=== PATIENT | male | born 1935 | race Caucasian/White ===

== ENCOUNTER → 2016-10-06 | Outpatient (CLI) | payer OTHER ==
[~2016-10-06] MED LIST: ACET-1311 PO; AMOX200S11 PO; ATV/1 SL; BACL10TA PO; CARB1TAB PO; CARB25TA12 PO; CEFD1CAP14 PO; CEFT1INJ57 IM; CHOL1000 PO; CHOL100010 PO; DONE10TA12 PO; FINA5TAB PO; GABA-112 PO; LORA-741 PO; MEGE40SU PO; NF656 TD; OXYC10SO PO; POLY335019 PO; PRAM1TAB52 PO; TERA5CAP PO; TRAM-10 PO; [UNRECOGNIZED DRUG - CODE] IV; [UNRECOGNIZED DRUG - CODE] PO
--- NOTE | 2016-10-06 12:12 | DIAGNOSTIC IMAGING REPORT ---
LEFT FEMUR 5 VIEWS HISTORY: Left hip and leg pain. Prostate cancer/C61 COMPARISON: Pelvis and left hip 08/24/2016. FINDINGS: There is no fracture or dislocation. Soft tissues are unremarkable. No radiopaque foreign bodies. No suspicious lytic or blastic osseous lesions. The bones are osteopenic. IMPRESSION: Osteopenia. Otherwise, no abnormality within the left femur. Electronically signed by: Juan Pollard M.D. 10/06/2016 12:10 PM Dictated Date/Time: 10/06/2016 12:08 PM
== END | disposition home or self-care (01) ==
LOC: C.RADBC 11:23
PROVIDERS: ATTEND Internal Medicine
DX: C61 Malignant neoplasm of prostate (principal); M81.0 Age-related osteoporosis without current pathological fracture

== ENCOUNTER → 2016-10-12 | Outpatient (CLI) | payer OTHER ==
[2016-10-12 18:14] LABS: BASO % 0.2 %; BASO ABS # 0.01 K/uL (0-0.2); COMPLETE YES; EOS % 1.4 %; HEMATOCRIT 39.3 % (42-52); IG% 0.3 %; LYMPH % 20.8 %; MEAN CELL VOLUME 101.8 fL (80-100); MEAN CORPUSCULAR HEMOGLOBIN 33.9 pg (25-34); MEAN CORPUSCULAR HGB CONC 33.3 g/dl (32-36); MEAN PLATELET VOLUME 11.5 fL (7.4-10.4); MONO % 7.2 %; NEUT % 70.1 %; PLATELET COUNT 227 K/uL (130-400); RED BLOOD COUNT 3.86 M/uL (4.7-6.1); WHITE BLOOD COUNT 6.26 K/uL (4.8-10.8)
[2016-10-12 19:03] LABS: LYME DISEASE AB IGG POS (NEG); LYME DISEASE AB IGM NEG (NEG)
[2016-10-12 19:25] LABS: ALT/SGPT 7 U/L (12-78); AST/SGOT 16 U/L (15-37); BLOOD UREA NITROGEN 17 mg/dl (7-18); BUN/CREATININE RATIO 17.7 (10-20); CALCIUM 8.5 mg/dl (8.5-10.1); CARBON DIOXIDE 31 mmol/L (21-32); CHLORIDE 108 mmol/L (98-107); CREATININE 0.97 mg/dl (0.60-1.40); GLUCOSE 84 mg/dl (70-99); POTASSIUM 3.7 mmol/L (3.5-5.1); SODIUM 143 mmol/L (136-145)
[2016-10-12 19:36] LABS: ALB/GLOB RATIO 0.9 (0.9-2); ALKALINE PHOSPHATASE 81 U/L (45-117); THYROID STIMULATING HORMONE 0.829 uIu/ml (0.300-4.500)
--- NOTE | 2016-10-16 12:50 | CODING QUERY MEDICAL NECESSITY ---
SUPPORTING DIAGNOSIS NEEDED A supporting diagnosis is required for the test/procedure performed on this patient in order for us to be reimbursed by the patient's insurance. Please provide a supporting diagnosis for the following test/procedure listed below next to the test name along with your signature. *If there is no additional diagnosis for this patient that would support the following test/procedure please document that below next to the test/procedure. Test(s)/Procedure(s) that require a supporting diagnosis: * VITAMIN D 25-HYDROXY DIAGNOSIS: * VITAMIN B-12 LEVEL DIAGNOSIS: * DOS: 10/12/16 Provider Signature: Date: Thank you Jigna Vidales Health Information Management Once completed, please kindly fax back to [phone] For questions please call [phone]
[2016-10-17 11:22] LABS: 18KDIGG BAND NONREACTIVE (NONREACTIVE); 23KDIGG BAND NONREACTIVE (NONREACTIVE); 23KDIGM BAND REACTIVE (NONREACTIVE); 28KDIGG BAND NONREACTIVE (NONREACTIVE); 30KDIGG BAND NONREACTIVE (NONREACTIVE); 39KDIGG BAND NONREACTIVE (NONREACTIVE); 39KDIGM BAND NONREACTIVE (NONREACTIVE); 41KDIGG BAND REACTIVE (NONREACTIVE); 41KDIGM BAND REACTIVE (NONREACTIVE); 45KDIGG BAND NONREACTIVE (NONREACTIVE); 58KDIGG BAND NONREACTIVE (NONREACTIVE); 66KDIGG BAND NONREACTIVE (NONREACTIVE); 93KDIGG BAND NONREACTIVE (NONREACTIVE)
== END | disposition home or self-care (01) ==
LOC: C.LABBC 13:56
PROVIDERS: ATTEND Internal Medicine
DX: D47.2 Monoclonal gammopathy (principal); Z00.00 Encounter for general adult medical examination without abnormal findings; E53.8 Deficiency of other specified B group vitamins

== ENCOUNTER 2016-10-14 10:24 | Emergency (ER) | payer OTHER ==
[~2016-10-14] VITALS: Ht 177.8 cm; Wt 67.0 kg
[~2016-10-14 10:24] MED LIST changes: -ACET-1311 PO; -AMOX200S11 PO; -ATV/1 SL; -BACL10TA PO; -CARB25TA12 PO; -CEFD1CAP14 PO; -CEFT1INJ57 IM; -CHOL1000 PO; -GABA-112 PO; -LORA-741 PO; -MEGE40SU PO; -NF656 TD; -OXYC10SO PO; -POLY335019 PO; -PRAM1TAB52 PO; -TRAM-10 PO; -[UNRECOGNIZED DRUG - CODE] IV; -[UNRECOGNIZED DRUG - CODE] PO
[2016-10-14 10:29] VITALS: TEMP 37.1; Ht 177.8 cm; Wt 67.0 kg
[2016-10-14] MEDS ORDERED: TRAMADOL HCL 50 MG TAB PO STA (10:51)
[2016-10-14] MEDS ORDERED: TRAM-10 PO (10:54)
--- NOTE | 2016-10-14 11:01 | EMERGENCY ROOM VISIT NOTE ---
History Report prepared by Vania: Golden Navas Under the Supervision of: Dr. Christina Vigil M.D. First contact with patient: 10:35 Chief Complaint: LEG PAIN,LEG INJURY Stated Complaint: L LEG PAIN History of Present Illness The patient is an 81 year old male who presents to the Emergency Room with complaints of worsening upper left leg pain for the past few weeks. The patient states that the pain can get up to a 10/10 in severity. He states that the pain is in the front of his leg. The patient denies any recent falls. The patient's daughter additionally states that the patient has Parkinson's disease. The daughter states that the patient had an x-ray and EMG done, and they both showed nothing. The patient's daughter states that nothing makes it worse, and he is up at night due to the pain. The daughter states that when the patient had Aspercreme with lidocaine applied it somewhat felt better. Source of History: patient, family Onset: few weeks ago Position: leg (left) Symptom Intensity: 10/10 Timing: worsening Modifying Factors (Relieving): other (aspercreme with lidocaine) Review of Systems See HPI for pertinent positives & negatives. A total of 10 systems reviewed and were otherwise negative. Past Medical & Surgical Medical Problems: (1) Parkinson disease (2) PNA (pneumonia) Family History FHx: cancer FHx: heart disease Social History Smoking Status: Never Smoker Alcohol Use: none Drug Use: none Marital Status: Housing Status: other Current/Historical Medications Scheduled Hgrehaqko-Avicmpqj-Dihhgrfubh (Carbidopa/Levodopa/Entaca), 1 TAB PO QID Cholecalciferol (Vitamin D3), 2,000 TAB PO DAILY Donepezil Hydrochloride (Aricept), 10 MG PO DAILY Finasteride (Proscar), 5 MG PO DAILY Terazosin (Hytrin), 5 MG PO HS Scheduled PRN Baclofen (Lioresal), 10 MG PO TID PRN for Pain Tramadol (Ultram), 1-2 TAB PO TID PRN for Pain Allergies Coded Allergies: Scopolamine (Verified Allergy, Severe, confusion, 10/14/16) Physical Exam Vital Signs Date Time Temp Pulse Resp B/P Pulse Ox O2 Delivery O2 Flow Rate FiO2 10/14/16 12:08 59 16 122/56 95 Room Air 10/14/16 10:29 37.1 77 18 106/75 99 Room Air Physical Exam CONSTITUTIONAL: Parkinson's Disease. Moderate painful distress HEENT: No icterus, moist mucous membranes NECK: No meningismus, trachea is midline. CARDIOVASCULAR: Regular rate, normal perfusion RESPIRATORY: Unlabored breathing. Clear to auscultation. GASTROINTESTINAL: Non-tender GENITOURINARY: No flank tenderness MUSCULOSKELETAL: Full range of motion NEUROLOGIC: No acute gross focal deficits. PSYCHIATRIC: Normal affect SKIN: Normal exam of the left leg. Normal for ethnicity. Medical Decision & Procedures ER Provider Diagnostic Interpretation: US results as stated below per my review and radiologist interpretation. ULTRASOUND LEFT LOWER EXTREMITY VENOUS CLINICAL HISTORY: Left leg pain. COMPARISON STUDY: No priors. TECHNIQUE: Real-time, grayscale, and color Doppler sonography of the deep veins of the left lower extremity was performed from the inguinal crease to the calf. Compression and augmentation were utilized. FINDINGS: There is no sonographic evidence of deep venous thrombosis identified in the left lower extremity. The common femoral, superficial femoral, and popliteal veins are patent and normally compressible. The greater saphenous vein and the profunda femoris vein at the junction with the common femoral vein are clear. The visualized calf veins are patent. A small and minimally complex popliteal cyst measures 5.0 x 1.4 x 2.7 cm. IMPRESSION: 1. There is no sonographic evidence of deep venous thrombosis identified in the left lower extremity. 2. Bakers cyst. Electronically signed by: Tl Barba M.D. 10/14/2016 11:42 AM Dictated Date/Time: 10/14/2016 11:41 AM Medications Administered Medications (Trade) Dose Ordered Sig/Ron Route Start Time Stop Time Status Last Admin Dose Admin Tramadol HCl (Ultram Tab) 50 mg NOW STAT PO 10/14/16 10:51 10/14/16 10:52 DC 10/14/16 11:04 50 MG ED Course 1044: Past medical records reviewed. The patient was evaluated in room C3. A complete history and physical examination was performed. 1051: Tramadol HCl 50mg PO 1305: Upon reexamination the patient is resting comfortably. I discussed results and treatment plan with the patient. He verbalizes agreement and understanding. The patient is ready for discharge. Medical Decision Differential diagnoses include but are not limited to; nerve pain, DVT, lr's cyst, bela pathology. 81-year-old presents to the emergency department with his daughter for evaluation of persistent posterior left leg pain. Extremities are he had x- rays as well as an EMG study which were negative and that the oxycodone prescribed by Dr. Morgan makes him sick. DVT study today demonstrates a Lr cyst. Is given tramadol emergency room with significant improvement in his pain. Rx: Tramadol 1-2 tabs every 8 hours. Daughter understands to have patient follow up with the primary doctor Impression Primary Impression: Bakers cyst Scribe Attestation The scribe's documentation has been prepared under my direction and personally reviewed by me in its entirety. I confirm that the note above accurately reflects all work, treatment, procedures, and medical decision making performed by me. Departure Information Dispostion Home / Self-Care Prescriptions Tramadol (Ultram) 50 Mg Tab 1-2 TAB PO TID Y for Pain, #24 TAB Prov: Christina Vigil MD 10/14/16 Referrals Darrel Morgan M.D. (PCP) Forms HOME CARE DOCUMENTATION FORM, IMPORTANT VISIT INFORMATION Patient Instructions ED Cyst Adeline, My [facility]
[2016-10-14] MEDS ORDERED: CHOL1000 PO (11:08)
[2016-10-14] MEDS ORDERED: BACL10TA PO (11:08)
--- NOTE | 2016-10-14 11:43 | DIAGNOSTIC IMAGING REPORT ---
ULTRASOUND LEFT LOWER EXTREMITY VENOUS CLINICAL HISTORY: Left leg pain. COMPARISON STUDY: No priors. TECHNIQUE: Real-time, grayscale, and color Doppler sonography of the deep veins of the left lower extremity was performed from the inguinal crease to the calf. Compression and augmentation were utilized. FINDINGS: There is no sonographic evidence of deep venous thrombosis identified in the left lower extremity. The common femoral, superficial femoral, and popliteal veins are patent and normally compressible. The greater saphenous vein and the profunda femoris vein at the junction with the common femoral vein are clear. The visualized calf veins are patent. A small and minimally complex popliteal cyst measures 5.0 x 1.4 x 2.7 cm. IMPRESSION: 1. There is no sonographic evidence of deep venous thrombosis identified in the left lower extremity. 2. Bakers cyst. Electronically signed by: Tl Barba M.D. 10/14/2016 11:42 AM Dictated Date/Time: 10/14/2016 11:41 AM
[2016-10-14 13:15] VITALS: BP 136/59; PULSE 54; O2SAT 95
== END 2016-10-14 13:29 | disposition home or self-care (01) ==
LOC: C.EDB 10:25 → C.EDC 13:29
DX: M71.20 Synovial cyst of popliteal space [Baker], unspecified knee (principal); G20 Parkinson's disease; Z79.899 Other long term (current) drug therapy; Z88.8 Allergy status to other drugs, medicaments and biological substances; Z80.9 Family history of malignant neoplasm, unspecified; Z82.49 Family history of ischemic heart disease and other diseases of the circulatory system

== ENCOUNTER → 2016-10-25 | Outpatient (CLI) | payer OTHER ==
[~2016-10-25] MED LIST changes: +ACET-1311 PO; +AMOX200S11 PO; +ATV/1 SL; +BACL10TA PO; +CARB25TA12 PO; +CEFD1CAP14 PO; +CEFT1INJ57 IM; +CHOL1000 PO; -CHOL100010 PO; +GABA-112 PO; +LORA-741 PO; +MEGE40SU PO; +NF656 TD; +OXYC10SO PO; +POLY335019 PO; +PRAM1TAB52 PO; +TRAM-10 PO; +[UNRECOGNIZED DRUG - CODE] IV; +[UNRECOGNIZED DRUG - CODE] PO
[2016-10-25 09:51] LABS: URINE APPEARANCE CLEAR (CLEAR); URINE BILIRUBIN NEG (NEG); URINE COLOR DK YELLOW; URINE NITRITE NEG (NEG); URINE SPECIFIC GRAVITY 1.024 (1.000-1.030); UROBILINOGEN NEG (NEG); ZZUR CULT IF INDIC CLEAN CATCH NO
[2016-10-25 09:59] LABS: MANUAL MICROSCOPIC REQUIRED? NO; REVIEW REQ? YES
== END ==
LOC: C.LABUPHEI 08:40
PROVIDERS: ATTEND Family Medicine
DX: R39.15 Urgency of urination (principal)

== ENCOUNTER → 2016-11-08 | Outpatient (CLI) | payer OTHER ==
[~2016-11-08] MED LIST changes: +AMOX-602 PO; -AMOX200S11 PO
[2016-11-08 09:41] LABS: URINE APPEARANCE CLEAR (CLEAR); URINE BILIRUBIN NEG (NEG); URINE COLOR DK YELLOW; URINE NITRITE NEG (NEG); URINE SPECIFIC GRAVITY 1.015 (1.000-1.030); UROBILINOGEN NEG (NEG); ZZUR CULT IF INDIC CLEAN CATCH NO
[2016-11-08 09:47] LABS: MANUAL MICROSCOPIC REQUIRED? NO; REVIEW REQ? NO
--- NOTE | 2016-11-10 10:17 | CODING QUERY NO DIAGNOSIS ---
TREATMENT RENDERED WITHOUT A DIAGNOSIS : 1935 To promote full compliance with coding requirements relating to patient care, physician participation is requested in all cases of asbestos abatement technician uncertainty. Please assist us with providing a diagnosis/symptom for the test(s) below: A diagnosis/symptom was not documented on your Order. A valid diagnosis/symptom is required to bill all insurances. Please remember that we are unable to code a diagnosis of rule out, probable, possible, questionable, or suspected. Tests that require a diagnosis: DOS: 11/08/16 * [facility] CULT DIAGNOSIS: Provider Signature: Date: Thank you Ludy Riojas Health Information Management Once completed, please kindly fax back to [phone] For questions please call [phone]
== END ==
LOC: C.LABUPHEI 08:57
PROVIDERS: ATTEND Family Medicine
DX: N39.0 Urinary tract infection, site not specified (principal)

== ENCOUNTER → 2016-11-15 | Outpatient (CLI) | payer OTHER ==
[~2016-11-15] MED LIST changes: -AMOX-602 PO; +AMOX200S11 PO
[2016-11-15 10:35] LABS: MANUAL MICROSCOPIC REQUIRED? YES; URINE APPEARANCE CLOUDY (CLEAR); URINE COLOR AMBER; URINE NITRITE POS (NEG); URINE PH >= 9.0 (4.5-7.5); URINE SPECIFIC GRAVITY <= 1.005 (1.000-1.030); UROBILINOGEN NEG (NEG)
[2016-11-15 10:38] LABS: REVIEW REQ? NO; SULFASALICYLIC ACID POS (NEG); URINE BILIRUBIN NEG (NEG)
[2016-11-15 10:42] LABS: URINE BACTERIA 4+ (NEG); URINE WBC >30 /hpf (0-5)
== END ==
LOC: C.LABUPHEI 11-14 09:28
PROVIDERS: ATTEND Family Medicine
DX: R45.1 Restlessness and agitation (principal)

== ENCOUNTER 2016-11-18 21:58 | Inpatient (IN) | payer OTHER ==
[~2016-11-18] VITALS: Ht 175.3 cm; Wt 53.2 kg
[~2016-11-18 21:58] MED LIST changes: -ACET-1311 PO; -AMOX200S11 PO; -ATV/1 SL; -CARB25TA12 PO; -CEFD1CAP14 PO; -CEFT1INJ57 IM; -GABA-112 PO; -LORA-741 PO; -MEGE40SU PO; -NF656 TD; -OXYC10SO PO; -POLY335019 PO; -PRAM1TAB52 PO; -[UNRECOGNIZED DRUG - CODE] IV; -[UNRECOGNIZED DRUG - CODE] PO
[2016-11-18] MEDS ORDERED: SODIUM CHLORIDE 0.9% 1000ML 1,000 ML IV STA (23:17)
[2016-11-18 23:27] LABS: BASO % 0.2 %; BASO ABS # 0.02 K/uL (0-0.2); COMPLETE YES; HEMATOCRIT 51.7 % (42-52); IG% 0.6 %; LYMPH % 9.4 %; LYMPH ABS # 1.15 K/uL (1.2-3.4); MEAN CELL VOLUME 100.4 fL (80-100); MEAN CORPUSCULAR HEMOGLOBIN 33.8 pg (25-34); MEAN CORPUSCULAR HGB CONC 33.7 g/dl (32-36); MONO % 8.1 %; NEUT % 81.7 %; PLATELET COUNT 314 K/uL (130-400); RED BLOOD COUNT 5.15 M/uL (4.7-6.1); WHITE BLOOD COUNT 12.28 K/uL (4.8-10.8)
--- NOTE | 2016-11-18 23:32 | EMERGENCY ROOM VISIT NOTE ---
History Report prepared by Vania: Wale Lentz Under the Supervision of: Dr. Candis Buenrostro D.O. First contact with patient: 23:03 Chief Complaint: URINARY SYMPTOMS Stated Complaint: UTI Nursing Triage Summary: patient being treated for UTI . had dose of rocephin IM yesterday and staff at [facility] states patient is not improving and sent patient here for further workup. patient has dementia and is unable to answer questions at this time. History of Present Illness The patient is an 81 year old male who presents to the Emergency Room with complaints of persistent UTI symptoms for the past few weeks. Five weeks ago, the patient was temporarily moved to [facility]. Since being moved to the facility, the patient has had two or three UTIs and has been on and off antibiotics to treat the symptoms. Currently, the patient has a UTI and started Rocephin yesterday. However, the patient is known to pocket his medications. Per nursing staff at [facility], over the past few weeks the patient has been acting more agitated than usual. He also recently saw a Neurologist and he was doing grabbing motions in the air which the Neurologist thought was a sign of a UTI. Per nursing staff at [facility], the patient has been declining over the past few days. When he moved to [facility], he was communicating, eating and drinking, and able to move around in his wheelchair. However, over the past few days the patient has not taken anything by mouth and is not communicating or responding. Per patient's family, the patient has definitely been declining and they think he might not have been taking his medications for Parkinson's because he has been having increasing difficulty swallowing. [facility] because they thought he was dehydrated since he won't eat or drink and because he has been significantly declining. Per patient' s family, the only complaint the patient has had was a pain in his leg where he has Lr's cyst. The patient's HPI is limited due to AMS. Source of History: family, skilled nursing notes History Limited By: AMS Onset: past few weeks Position: other (global) Timing: other (persistent) Note: Other associated symptoms: UTI-like symptoms, acting more agitated, declining state, not communicating, decreased appetite and fluid-intake, increasing difficulty swallowing due to Parkinson's, leg pain Review of Systems The patient's ROS is limited due to AMS. Past Medical & Surgical Medical Problems: (1) ARF (acute renal failure) (2) Parkinson disease (3) PNA (pneumonia) Family History FHx: cancer FHx: heart disease Social History Smoking Status: Unknown if Ever Smoked Alcohol Use: none Drug Use: none Marital Status: Housing Status: other Current/Historical Medications Scheduled Cynooeteb-Ybcoecsy-Hjfawrsxoa (Carbidopa/Levodopa/Entaca), 1 TAB PO QID Cefdinir (Omnicef), 300 MG PO Q12H Ceftriaxone Sod (Rocephin), 1 GM IM DAILY Cholecalciferol (Vitamin D3), 2,000 TAB PO DAILY Cholecalciferol (Vitamin D3), 1,000 UNITS PO DAILY Donepezil Hydrochloride (Aricept), 10 MG PO DAILY Finasteride (Proscar), 5 MG PO DAILY Gabapentin (Neurontin), 100 MG PO BID Lidocaine (Lidoderm Patch 5%), 1 APPLN TD DAILY Megestrol Acetate (Megace Oral), 400 MG PO DAILY Pramipexole Dihydrochloride (Mirapex), 0.25 MG PO HS Terazosin (Hytrin), 5 MG PO HS Tramadol (Ultram), 50 MG PO Q8H Scheduled PRN Acetaminophen (Tylenol), 650 MG PO Q6H PRN for Pain or Fever Baclofen (Lioresal), 10 MG PO TID PRN for Pain Lorazepam (Ativan), 0.25 MG PO TID PRN for Anxiety Polyethylene Glycol 3350 (Miralax), 17 GM PO DAILY PRN for Constipation Allergies Coded Allergies: Scopolamine (Verified Allergy, Severe, confusion, 10/14/16) Physical Exam Vital Signs Date Time Temp Pulse Resp B/P Pulse Ox O2 Delivery O2 Flow Rate FiO2 11/19/16 02:03 79 11/19/16 01:40 76 20 103/64 95 Room Air 11/18/16 23:50 97 20 121/78 96 Room Air 11/18/16 22:43 93 11/18/16 22:05 36.5 96 18 116/75 96 Room Air Physical Exam General: Appears nearly catatonic. Will not follow commands. HEENT: Head - normocephalic and atraumatic Pupils are 2 mm and reactive to light. Extraocular eye muscles are intact, and sclera are anicteric. Nose - moist nasal mucosa without discharge. Mouth - dry buccal mucosa. Oropharynx is nonerythematous and there is no tonsillar exudate or edema noted. Neck: Supple; no JVD, nuchal rigidity, cervical lymphadenopathy. Heart: Regular rate and rhythm. There is a normal S1 and S2 with no murmurs, clicks, or gallops appreciated. Lungs: Clear to auscultation bilaterally with no wheezes, rales, or rhonchi. Abdomen: Soft, completely nontender, nondistended, with good bowel sounds. There are no palpable pulsatile masses or hepatosplenomegaly. There is no guarding, rigidity, or rebound noted. Extremities: No evidence of cyanosis, clubbing, or edema. There are easily palpable peripheral pulses. Skin: warm and dry with poor turgor and no rashes. Medical Decision & Procedures ER Provider Diagnostic Interpretation: Radiology results as stated below per my review and the radiologist's interpretation: CT Head: Limited due to artifact associated with deep brain stimulators. No clear acute intracranial process. Chest X-Ray: Elevated left hemidiaphragm, stimulator pack in place in left hemithorax. Laboratory Results 11/18/16 23:10 Red Blood Count 5.15, Mean Corpuscular Volume 100.4, Mean Corpuscular Hemoglobin 33.8, Mean Corpuscular Hemoglobin Concent 33.7, Mean Platelet Volume 12.0, Neutrophils (%) (Auto) 81.7, Lymphocytes (%) (Auto) 9.4, Monocytes (%) ( Auto) 8.1, Eosinophils (%) (Auto) 0.0, Basophils (%) (Auto) 0.2, Neutrophils # ( Auto) 10.04, Lymphocytes # (Auto) 1.15, Monocytes # (Auto) 1.00, Eosinophils # ( Auto) 0.00, Basophils # (Auto) 0.02 11/18/16 23:10 Test 11/18/16 23:10 11/18/16 23:39 11/18/16 23:40 White Blood Count 12.28 K/uL (4.8-10.8) Red Blood Count 5.15 M/uL (4.7-6.1) Hemoglobin 17.4 g/dL (14.0-18.0) Hematocrit 51.7 % (42-52) Mean Corpuscular Volume 100.4 fL (80-100) Mean Corpuscular Hemoglobin 33.8 pg (25-34) Mean Corpuscular Hemoglobin Concent 33.7 g/dl (32-36) Platelet Count 314 K/uL (130-400) Mean Platelet Volume 12.0 fL (7.4-10.4) Neutrophils (%) (Auto) 81.7 % Lymphocytes (%) (Auto) 9.4 % Monocytes (%) (Auto) 8.1 % Eosinophils (%) (Auto) 0.0 % Basophils (%) (Auto) 0.2 % Neutrophils # (Auto) 10.04 K/uL (1.4-6.5) Lymphocytes # (Auto) 1.15 K/uL (1.2-3.4) Monocytes # (Auto) 1.00 K/uL (0.11-0.59) Eosinophils # (Auto) 0.00 K/uL (0-0.5) Basophils # (Auto) 0.02 K/uL (0-0.2) RDW Standard Deviation 51.0 fL (36.4-46.3) RDW Coefficient of Variation 13.9 % (11.5-14.5) Immature Granulocyte % (Auto) 0.6 % Immature Granulocyte # (Auto) 0.07 K/uL (0.00-0.02) Anion Gap 9.0 mmol/L (3-11) Estimated GFR () 29.5 Estimated GFR (Non- 25.5 BUN/Creatinine Ratio 42.6 (10-20) Calcium Level 9.7 mg/dl (8.5-10.1) Total Bilirubin 0.5 mg/dl (0.2-1) Direct Bilirubin 0.1 mg/dl (0-0.2) Aspartate Amino Transf (AST/SGOT) 98 U/L (15-37) Alanine Aminotransferase (ALT/SGPT) 24 U/L (12-78) Alkaline Phosphatase 114 U/L (45-117) Total Creatine Kinase 717 U/L (39-308) Creatine Kinase MB 3.9 ng/ml (0.5-3.6) Troponin I 0.017 ng/ml (0-0.045) Total Protein 9.4 gm/dl (6.4-8.2) Albumin 3.0 gm/dl (3.4-5.0) Thyroid Stimulating Hormone (TSH) 1.620 uIu/ml (0.300-4.500) Creatine Kinase MB Ratio (0-3.0) Urine Color DK YELLOW Urine Appearance CLOUDY (CLEAR) Urine pH 6.0 (4.5-7.5) Urine Specific [place] 1.026 (1.000-1.030) Urine Protein 2+ (NEG) Urine Glucose (UA) NEG (NEG) Urine Ketones NEG (NEG) Urine Occult Blood 3+ (NEG) Urine Nitrite NEG (NEG) Urine Bilirubin NEG (NEG) Urine Urobilinogen NEG (NEG) Urine Leukocyte Esterase LARGE (NEG) Urine WBC (Auto) >30 /hpf (0-5) Urine RBC (Auto) >30 /hpf (0-4) Urine Hyaline Casts (Auto) 1-5 /lpf (0-5) Urine Epithelial Cells (Auto) >30 /lpf (0-5) Urine Bacteria (Auto) NEG (NEG) Urine Renal Epithelial Cells /lpf (0-5) Urine Pathogenic Casts /lpf (0) Urine Yeast (Auto) (NONE PRSENT) Laboratory results per my review. Medications Administered Medications (Trade) Dose Ordered Sig/Ron Route Start Time Stop Time Status Last Admin Dose Admin Sodium Chloride (Nss 1000ml) 1,000 ml @ 250 mls/hr Q4H STAT IV 11/18/16 23:17 11/19/16 02:55 DC 11/18/16 23:17 250 MLS/HR Procedure NSS IV ECG Indication: other Rate (beats per minute): 98 Rhythm: normal sinus Findings: other (with significant artifact secondary to brain stimulator) Change: ST segment depression laterally and t-wave inversion in AVL new when compared to EKG from September 2013. ED Course 2310: Past medical records reviewed. The patient was evaluated in room B4. A complete history and physical exam was performed. An IV lock was initiated and labs were drawn as above. 2317: Ordered NSS 1000 ml @ 250 mls/hr IV. The patient for CT scan of the brain as described above. 0130: At this time, I reevaluated the patient and he was still resting. 0154: At this time, I discussed the patient's case with Dr. Stafford - Hospitalist [facility] and he agreed to accept the patient for further evaluation. Medical Decision The patient is a 81 year old male who presents to the ED with UTI-like symptoms. Differential diagnosis includes dehydration, acute CVA, intracranial hemorrhage, Parkinson's exacerbation secondary to medication noncompliance. Labs reviewed by me: Sodium 151, chloride 116, BUN 98, creatinine 2.3, glucose 118, total CK 717, CKMB 3.9, Troponin 0.017, normal TSH, Normal H&H, white blood cells 12.2, urine was dark yellow in color with 3+ blood, >30 white cells and >30 red cells, large amount of leukocyte esterase. The patient has had increasing lethargy and altered mental status over the past couple of days. He's had decreased oral intake over the past couple weeks. The family explains that he places his medications in the right side of his mouth does not typically swollen and therefore has not been routinely taking his Parkinson's meds over the past couple of days. The patient has evidence of acute kidney injury with a creatinine of 2.3 up from 0.9. BUN/creatinine ratio is quite high. This is consistent with significant prerenal azotemia. Patient was receiving IV fluids here in the emergency department. His mental status did seem to start to improve according to the daughters. I discussed the case with the [facility] hospitalist and they will evaluate for further management. Consults Time Called: 014 Consulting Physician: Dr. Stafford - Hospitalist [facility] Returned Call: [phone] t this time, I discussed the patient's case with Dr. Stafford and he agreed to accept the patient for further evaluation. Impression Primary Impression: ARF (acute renal failure) Additional Impression: Altered mental status Scribe Attestation The scribe's documentation has been prepared under my direction and personally reviewed by me in its entirety. I confirm that the note above accurately reflects all work, treatment, procedures, and medical decision making performed by me. Departure Information Dispostion Being Evaluated By Hospitalist Referrals Donna Lopez (PCP) Problem Qualifiers
[2016-11-18 23:45] LABS: ALT/SGPT 24 U/L (12-78); BLOOD UREA NITROGEN 98 mg/dl (7-18); BUN/CREATININE RATIO 42.6 (10-20); CALCIUM 9.7 mg/dl (8.5-10.1); CARBON DIOXIDE 26 mmol/L (21-32); CHLORIDE 116 mmol/L (98-107); GLUCOSE 118 mg/dl (70-99); POTASSIUM 4.6 mmol/L (3.5-5.1); SODIUM 151 mmol/L (136-145)
[2016-11-18 23:56] LABS: ALKALINE PHOSPHATASE 114 U/L (45-117); AST/SGOT 98 U/L (15-37)
[2016-11-18 23:58] LABS: MANUAL MICROSCOPIC REQUIRED? NO; REVIEW REQ? YES; URINE APPEARANCE CLOUDY (CLEAR); URINE BILIRUBIN NEG (NEG); URINE COLOR DK YELLOW; URINE EPITHELIAL CELL AUTO >30 /lpf (0-5); URINE NITRITE NEG (NEG); URINE SPECIFIC GRAVITY 1.026 (1.000-1.030); UROBILINOGEN NEG (NEG)
[2016-11-19 00:07] LABS: CKMB/CK RATIO 0.5 (0-3.0)
[2016-11-19] MEDS ORDERED: NF656 TD (02:04)
[2016-11-19] MEDS ORDERED: MEGE40SU PO (02:08)
[2016-11-19] MEDS ORDERED: PRAM1TAB52 PO (02:10)
[2016-11-19] MEDS ORDERED: CEFT1INJ57 IM (02:13)
[2016-11-19] MEDS ORDERED: LORAZEPAM 2 MG/ML 1 ML VIAL IV PRN (02:15)
[2016-11-19] MEDS ORDERED: ONDANSETRON INJ 2 MG/ML 2 ML VIAL IV PRN (02:15)
[2016-11-19] MEDS ORDERED: BACLOFEN 10 MG TAB PO PRN (02:15)
[2016-11-19] MEDS ORDERED: CHOL1000 PO (02:16)
[2016-11-19] MEDS ORDERED: CEFD1CAP14 PO (02:18)
[2016-11-19] MEDS ORDERED: GABA-112 PO (02:20)
[2016-11-19] MEDS ORDERED: TRAM-10 PO (02:21)
[2016-11-19] MEDS ORDERED: ACET-1311 PO (02:24)
[2016-11-19] MEDS ORDERED: LORA-741 PO (02:27)
[2016-11-19] MEDS ORDERED: POLY335019 PO (02:29)
--- NOTE | 2016-11-19 02:47 | History and Physical ---
History & Physical Date & Time of Service: Nov 19, 2016 at 02:18 Chief Complaint: UTI Primary Care Physician: Tor Banda D.O. History of Present Illness Source: patient 81 y/o M w/Hx advanced Parkinson's disease, malnutrition. Pt's was recently admitted to the hospital and then a rehab facility following orthopedic surgery. He was exhibiting progressive weakness and lethargy at home and then placed in a nursing facility the past 2 weeks by his daughters for the purpose of receiving PT. In fact the pt's condition progressed while in the longterm. He began refusing any PO intake and then refused all medications over the past few days including his Parkinson's meds. He became catatonic PTO and was sent to the ER for evaluation. Initial labs reveal ARF which is likely due to dehydration. Clinically, the pt is rigid and poorly responsive on admission. He cannot contribute to the HPI. The pt's daughters have accompanied him to the ER and together with his have POA. I offered to place an NG tube in the pt to provide him with his Parkinson's medications as abrupt withdrawal can be life-threatening, however they declined stating that he has specified he does not want an NG or additional , interventional life-prolonging measures. The pt will therefore be treated with a focus on comfort however a final decision on his care status will be made in conjunction with his in the AM. 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 Smoking Status: Never Smoker Alcohol Use: none Drug Use: none Marital Status: Housing status: lives with family Immunizations History of Influenza Vaccine: Yes Influenza Vaccine Date: May 25, 2013 History of Tetanus Vaccine?: No History of Pneumococcal: Yes Pneumococcal Date: Aug 04, 2009 History of Hepatitis B Vaccine: No Multi-Drug Resistant Organisms History of MDRO: No Allergies Coded Allergies: Scopolamine (Verified Allergy, Severe, confusion, 10/14/16) Home Medications Scheduled Ydyabelwm-Ejyijmrc-Jyhsqrthvx (Carbidopa/Levodopa/Entaca), 1 TAB PO QID Cefdinir (Omnicef), 300 MG PO Q12H Ceftriaxone Sod (Rocephin), 1 GM IM DAILY Cholecalciferol (Vitamin D3), 2,000 TAB PO DAILY Cholecalciferol (Vitamin D3), 1,000 UNITS PO DAILY Donepezil Hydrochloride (Aricept), 10 MG PO DAILY Finasteride (Proscar), 5 MG PO DAILY Lidocaine (Lidoderm Patch 5%), 1 APPLN TD DAILY Megestrol Acetate (Megace Oral), 400 MG PO DAILY Pramipexole Dihydrochloride (Mirapex), 0.25 MG PO HS Terazosin (Hytrin), 5 MG PO HS Scheduled PRN Baclofen (Lioresal), 10 MG PO TID PRN for Pain Tramadol (Ultram), 1-2 TAB PO TID PRN for Pain Review of Systems cannot obtain - brought in due to unresponsive state Physical Exam Vital Signs Date Time Temp Pulse Resp B/P Pulse Ox O2 Delivery O2 Flow Rate FiO2 11/19/16 02:03 79 11/19/16 01:40 76 20 103/64 95 Room Air 11/18/16 23:50 97 20 121/78 96 Room Air 11/18/16 22:43 93 11/18/16 22:05 36.5 96 18 116/75 96 Room Air General Appearance: + pertinent finding (emaciated appearing elderly male - rigid and poorly responsive) Head: normocephalic Eyes: PERRL ENT: + pertinent finding (dry mucosal membranes) Neck: + pertinent finding (globally rigid) Respiratory/Chest: chest non-tender, lungs clear (poor effort - no audible crackles/wheezing), + pertinent finding (DBS in L chest wall - no induration) Cardiovascular: regular rate, rhythm, no gallop, no JVD, + systolic murmur Abdomen/GI: normal bowel sounds, non tender, soft Extremities/Musculoskelatal: normal inspection, no calf tenderness, normal capillary refill Neurologic/Psych: + pertinent finding (rigid - poorly responsive - occasional spontaneous movemet favors the extremities however he does move all 4) Skin: normal color, warm/dry, no rash Diagnostics Laboratory Results Results Past 24 Hours Test 11/18/16 23:10 11/18/16 23:39 11/18/16 23:40 Range/Units White Blood Count 12.28 4.8-10.8 K/uL Red Blood Count 5.15 4.7-6.1 M/uL Hemoglobin 17.4 14.0-18.0 g/dL Hematocrit 51.7 42-52 % Mean Corpuscular Volume 100.4 80-100 fL Mean Corpuscular Hemoglobin 33.8 25-34 pg Mean Corpuscular Hemoglobin Concent 33.7 32-36 g/dl Platelet Count 314 130-400 K/uL Mean Platelet Volume 12.0 7.4-10.4 fL Neutrophils (%) (Auto) 81.7 % Lymphocytes (%) (Auto) 9.4 % Monocytes (%) (Auto) 8.1 % Eosinophils (%) (Auto) 0.0 % Basophils (%) (Auto) 0.2 % Neutrophils # (Auto) 10.04 1.4-6.5 K/uL Lymphocytes # (Auto) 1.15 1.2-3.4 K/uL Monocytes # (Auto) 1.00 0.11-0.59 K/uL Eosinophils # (Auto) 0.00 0-0.5 K/uL Basophils # (Auto) 0.02 0-0.2 K/uL RDW Standard Deviation 51.0 36.4-46.3 fL RDW Coefficient of Variation 13.9 11.5-14.5 % Immature Granulocyte % (Auto) 0.6 % Immature Granulocyte # (Auto) 0.07 0.00-0.02 K/uL Sodium Level 151 136-145 mmol/L Potassium Level 4.6 3.5-5.1 mmol/L Chloride Level 116 98-107 mmol/L Carbon Dioxide Level 26 21-32 mmol/L Anion Gap 9.0 3-11 mmol/L Blood Urea Nitrogen 98 7-18 mg/dl Creatinine 2.30 0.60-1.40 mg/dl Estimated GFR () 29.5 Estimated GFR (Non- 25.5 BUN/Creatinine Ratio 42.6 10-20 Random Glucose 118 70-99 mg/dl Calcium Level 9.7 8.5-10.1 mg/dl Total Bilirubin 0.5 0.2-1 mg/dl Direct Bilirubin 0.1 0-0.2 mg/dl Aspartate Amino Transf (AST/SGOT) 98 15-37 U/L Alanine Aminotransferase (ALT/SGPT) 24 12-78 U/L Alkaline Phosphatase 114 45-117 U/L Total Creatine Kinase 717 39-308 U/L Creatine Kinase MB 3.9 0.5-3.6 ng/ml Creatine Kinase MB Ratio 0.5 0-3.0 Troponin I 0.017 0-0.045 ng/ml Total Protein 9.4 6.4-8.2 gm/dl Albumin 3.0 3.4-5.0 gm/dl Thyroid Stimulating Hormone (TSH) 1.620 0.300-4.500 uIu/ml Urine Color DK YELLOW Urine Appearance CLOUDY CLEAR Urine pH 6.0 4.5-7.5 Urine Specific [place] 1.026 1.000-1.030 Urine Protein 2+ NEG Urine Glucose (UA) NEG NEG Urine Ketones NEG NEG Urine Occult Blood 3+ NEG Urine Nitrite NEG NEG Urine Bilirubin NEG NEG Urine Urobilinogen NEG NEG Urine Leukocyte Esterase LARGE NEG Urine WBC (Auto) >30 0-5 /hpf Urine RBC (Auto) >30 0-4 /hpf Urine Hyaline Casts (Auto) 1-5 0-5 /lpf Urine Epithelial Cells (Auto) >30 0-5 /lpf Urine Bacteria (Auto) NEG NEG Urine Renal Epithelial Cells 0-5 /lpf Urine Pathogenic Casts 0 /lpf Urine Yeast (Auto) NONE PRSENT Microbiology Results 11/18/16 Urine Culture, Received Pending Diagnostic Radiology CT head: no acute findings Impression Assessment and Plan 81 y/o M w/Hx advanced Parkinson's disease, malnutrition. Pt's was recently admitted to the hospital and then a rehab facility following orthopedic surgery. He was exhibiting progressive weakness and lethargy at home and then placed in a nursing facility the past 2 weeks by his daughters for the purpose of receiving PT. In fact the pt's condition progressed while in the longterm. He began refusing any PO intake and then refused all medications over the past few days including his Parkinson's meds. He became catatonic PTO and was sent to the ER for evaluation. Initial labs reveal ARF which is likely due to dehydration. Clinically, the pt is rigid and poorly responsive on admission. He cannot contribute to the HPI. 1) Parkinson's - unresponsive and rigid - possibly a result of abrupt medication withdrawal - family have refused an NG for administration and are leaning toward comfort measures. Will provide Ativan and Morphine will be provided in addition to aggressive IVF. If he improves enough to take his meds we will restart his home dosing. 2) ARF/dehydration - IVF - no labs ordered until a decision is made AM regarding treatment goal 3) Malnutrition - pt previously had a PEG and has stated that he does not want any form of assisted feeding. DNR - prophylaxis not provided Total time for this admit including review of records, labs, meds, imaging - extensive discussion with daughters, ER attending - 33 min Level of Care Med/Surg Resuscitation Status DO NOT RESUSCITATE VTE Prophylaxis VTE Risk Assessment Done? Y/N: Yes Risk Level: Moderate Given or contraindicated: Treatment not indicated
[2016-11-19] MEDS ORDERED: LORAZEPAM INJ 0.5 MG in SYRINGE 0.75 ML IV PRN (03:00)
[2016-11-19 03:15] VITALS: BP 124/79; PULSE 95; TEMP 36.5; O2SAT 98; Ht 175.3 cm; Wt 53.2 kg
[2016-11-19] MEDS: D5W AND 1/2NSS 1,000 ML IV SCH ×4 (04:31→16:48)
--- NOTE | 2016-11-19 06:13 | DIAGNOSTIC IMAGING REPORT ---
CHEST ONE VIEW PORTABLE CLINICAL HISTORY: h/o aspiration dyspnea COMPARISON STUDY: 03/24/2016 FINDINGS: Lungs are clear. Diaphragms smooth. No evidence for cardiac enlargement. IMPRESSION: No acute process. Electronically signed by: Michael Delarosa M.D. 11/19/2016 6:12 AM Dictated Date/Time: 11/19/2016 6:11 AM
--- NOTE | 2016-11-19 06:16 | DIAGNOSTIC IMAGING REPORT ---
HEAD CT NONCONTRAST CT DOSE: 1382.10 mGy.cm HISTORY: Mental status change altered ms TECHNIQUE: Multiaxial CT images of the head were performed without the use of intravenous contrast. Comparison: 02/21/2016 Findings: The paranasal sinuses and mastoid air cells are clear. Brain stimulating electrodes unchanged in position from the prior exam. Age-related atrophy and chronic small vessel change. No acute intracranial abnormality. Review of systems midline. Impression: Chronic and postoperative change. No acute intracranial abnormality. Electronically signed by: Michael Delarosa M.D. 11/19/2016 6:14 AM Dictated Date/Time: 11/19/2016 6:13 AM
[2016-11-19 08:00] VITALS: BP 152/83; PULSE 66; TEMP 36.3; O2SAT 99
[2016-11-19 08:22] LABS: BASO % 0.2 %; BASO ABS # 0.02 K/uL (0-0.2); COMPLETE YES; HEMATOCRIT 43.2 % (42-52); IG% 0.6 %; LYMPH % 12.3 %; MEAN CELL VOLUME 101.2 fL (80-100); MEAN CORPUSCULAR HEMOGLOBIN 33.3 pg (25-34); MEAN CORPUSCULAR HGB CONC 32.9 g/dl (32-36); MEAN PLATELET VOLUME 11.6 fL (7.4-10.4); MONO % 8.4 %; NEUT % 78.5 %; PLATELET COUNT 275 K/uL (130-400); RED BLOOD COUNT 4.27 M/uL (4.7-6.1); WHITE BLOOD COUNT 11.35 K/uL (4.8-10.8)
--- NOTE | 2016-11-19 08:47 | Progress Note ---
Subjective Date of Service: Nov 19, 2016. Subjective Pt evaluation today including: conversation w/ patient, physical exam, chart review, lab review, review of studies, review of inpatient medication list Look very frail, lethargic, but turning head, open eyes, follow-up simple commands when talk to him more, looks so weak, Problem List Medical Problems: (1) Altered mental status Status: Acute (2) Altered mental status Status: Acute (3) Bakers cyst Status: Acute (4) Fever Status: Acute Review of Systems Constitutional: + problem reported (is limited because patient is nonverbal), No chills, No fever Objective Vital Signs Date Time Temp Pulse Resp B/P Pulse Ox O2 Delivery O2 Flow Rate FiO2 11/19/16 08:00 36.3 66 16 152/83 99 Room Air 11/19/16 03:15 Room Air 11/19/16 03:15 36.5 95 16 124/79 98 Room Air 11/19/16 02:43 80 20 103/61 95 11/19/16 02:03 79 11/19/16 01:40 76 20 103/64 95 Room Air 11/18/16 23:50 97 20 121/78 96 Room Air 11/18/16 22:43 93 11/18/16 22:05 36.5 96 18 116/75 96 Room Air Physical Exam General Appearance: + cachetic, + thin, + pertinent finding (frail, very week, lethargic) Eyes: normal inspection ENT: + pertinent finding (mucosa is dry) Neck: supple, no JVD Respiratory/Chest: + decreased breath sounds Cardiovascular: regular rate, rhythm, no edema Abdomen: normal bowel sounds, non tender, soft Extremities: non-tender Neurologic/Psychiatric: + abnormal final finisher II-XII (not able to test, however no obvious facial droop, mental status is none verble, very lethargic), + pertinent finding (follow-up commands to close eyes, stick out tongue,move right hands and bilateral toes but was not able to move left hand,) Skin: + pertinent finding (dry, bilateral lower heel is in protection) Laboratory Results Last 24 Hours Test 11/18/16 23:10 11/18/16 23:39 11/18/16 23:40 11/19/16 08:05 White Blood Count 12.28 K/uL 11.35 K/uL Red Blood Count 5.15 M/uL 4.27 M/uL Hemoglobin 17.4 g/dL 14.2 g/dL Hematocrit 51.7 % 43.2 % Mean Corpuscular Volume 100.4 fL 101.2 fL Mean Corpuscular Hemoglobin 33.8 pg 33.3 pg Mean Corpuscular Hemoglobin Concent 33.7 g/dl 32.9 g/dl Platelet Count 314 K/uL 275 K/uL Mean Platelet Volume 12.0 fL 11.6 fL Neutrophils (%) (Auto) 81.7 % 78.5 % Lymphocytes (%) (Auto) 9.4 % 12.3 % Monocytes (%) (Auto) 8.1 % 8.4 % Eosinophils (%) (Auto) 0.0 % 0.0 % Basophils (%) (Auto) 0.2 % 0.2 % Neutrophils # (Auto) 10.04 K/uL 8.91 K/uL Lymphocytes # (Auto) 1.15 K/uL 1.40 K/uL Monocytes # (Auto) 1.00 K/uL 0.95 K/uL Eosinophils # (Auto) 0.00 K/uL 0.00 K/uL Basophils # (Auto) 0.02 K/uL 0.02 K/uL RDW Standard Deviation 51.0 fL 52.3 fL RDW Coefficient of Variation 13.9 % 14.0 % Immature Granulocyte % (Auto) 0.6 % 0.6 % Immature Granulocyte # (Auto) 0.07 K/uL 0.07 K/uL Sodium Level 151 mmol/L Potassium Level 4.6 mmol/L Chloride Level 116 mmol/L Carbon Dioxide Level 26 mmol/L Anion Gap 9.0 mmol/L Blood Urea Nitrogen 98 mg/dl Creatinine 2.30 mg/dl Estimated GFR () 29.5 Estimated GFR (Non- 25.5 BUN/Creatinine Ratio 42.6 Random Glucose 118 mg/dl Calcium Level 9.7 mg/dl Total Bilirubin 0.5 mg/dl Direct Bilirubin 0.1 mg/dl Aspartate Amino Transf (AST/SGOT) 98 U/L Alanine Aminotransferase (ALT/SGPT) 24 U/L Alkaline Phosphatase 114 U/L Total Creatine Kinase 717 U/L Creatine Kinase MB 3.9 ng/ml Creatine Kinase MB Ratio 0.5 Troponin I 0.017 ng/ml Total Protein 9.4 gm/dl Albumin 3.0 gm/dl Thyroid Stimulating Hormone (TSH) 1.620 uIu/ml Urine Color DK YELLOW Urine Appearance CLOUDY Urine pH 6.0 Urine Specific [place] 1.026 Urine Protein 2+ Urine Glucose (UA) NEG Urine Ketones NEG Urine Occult Blood 3+ Urine Nitrite NEG Urine Bilirubin NEG Urine Urobilinogen NEG Urine Leukocyte Esterase LARGE Urine WBC (Auto) >30 /hpf Urine RBC (Auto) >30 /hpf Urine Hyaline Casts (Auto) 1-5 /lpf Urine Epithelial Cells (Auto) >30 /lpf Urine Bacteria (Auto) NEG Urine Renal Epithelial Cells /lpf Urine Pathogenic Casts /lpf Urine Yeast (Auto) Assessment and Plan 81 y/o M on 11/18/2016 because of ARF/dehydration/catatonic pt was progressive weakness and lethargy at home and then placed in a nursing facility the past 2 weeks by his daughters for the purpose of receiving PT. Condition continued getting worse in jail, was refusing any PO intake and then refused all medications over the past few days including his Parkinson' s meds. he became catatonic PTO and was sent to the ER for evaluation. Initial labs reveal ARF which is likely due to dehydration. he was rigid and poorly responsive on admission. Nonverbal, deconditioning, debility, likely secondary to multiple factors such as acute dehydration, plus Hx advanced Parkinson's disease, malnutrition, possible a little bit more responsive compared to the description upon admission , however remains critically ill and sick Parkinson's - unresponsive and rigid - possibly a result of abrupt medication withdrawal family have refused an NG for administration and are leaning toward comfort measures. Continue provide Ativan and Morphine will provided in addition to aggressive IVF. If he improves enough to take his meds we will restart his home dosing. Continue ARF/dehydration - IVF Malnutrition, pt previously had a PEG and has stated that he does not want any form of assisted feeding. I called to patient's daughter Kourtney, she wanted to continue for current care which is IV fluid only, no PEG tube, no other aggressive or surgical procedure / no NGT, Kourtney will coming in today with mom and sister and to discuss more with medical team, We'll talk to family more DNR - prophylaxis not provided Discussed with nurse Continued [facility] stay due to: multiple IV medications needed Discharge planning: uncertain
[2016-11-19] MEDS: LIDODERM (LIDOCAINE) PATCH 5% TD SCH ×2 (09:00→10:25)
[2016-11-19] MEDS: CARBIDOPA/LEVODOPA 25/100MG TAB PO SCH ×4 (09:00→21:19)
[2016-11-19] MEDS: ENTACAPONE 200 MG TAB PO SCH ×4 (09:00→21:19)
[2016-11-19] MEDS: MEGESTROL ACETATE 400 MG/10 ML UDP PO SCH (09:00)
[2016-11-19] MEDS: CHOLECALCIFEROL 1000 INTER.UNIT TAB PO SCH (09:00)
[2016-11-19] MEDS: FINASTERIDE 5 MG TAB PO SCH (09:00)
[2016-11-19] MEDS: DONEPEZIL HCL 10 MG TAB PO SCH (09:00)
[2016-11-19 09:29] LABS: BUN/CREATININE RATIO 45.1 (10-20); CALCIUM 9.1 mg/dl (8.5-10.1); CREATININE 2.1 mg/dl (0.60-1.40); MAGNESIUM 3.8 mg/dl (1.8-2.4); POTASSIUM 4.7 mmol/L (3.5-5.1)
[2016-11-19 15:33] VITALS: BP 118/70; PULSE 93; TEMP 36.4; O2SAT 98
[2016-11-19 22:55] VITALS: BP 107/70; PULSE 74; TEMP 36.5; O2SAT 99
[2016-11-20 06:27] LABS: BASO % 0.1 %; BASO ABS # 0.01 K/uL (0-0.2); COMPLETE YES; EOS % 0.2 %; HEMATOCRIT 48.3 % (42-52); IG% 0.7 %; LYMPH % 10.5 %; LYMPH ABS # 1.31 K/uL (1.2-3.4); MEAN CORPUSCULAR HEMOGLOBIN 34.8 pg (25-34); MEAN CORPUSCULAR HGB CONC 33.7 g/dl (32-36); MEAN PLATELET VOLUME 11.9 fL (7.4-10.4); MONO % 7.5 %; PLATELET COUNT 276 K/uL (130-400); RED BLOOD COUNT 4.69 M/uL (4.7-6.1); WHITE BLOOD COUNT 12.49 K/uL (4.8-10.8)
[2016-11-20 06:57] LABS: BUN/CREATININE RATIO 45.5 (10-20); CALCIUM 9.8 mg/dl (8.5-10.1); CREATININE 1.9 mg/dl (0.60-1.40); MAGNESIUM 3.6 mg/dl (1.8-2.4); POTASSIUM 4.3 mmol/L (3.5-5.1)
[2016-11-20 07:55] VITALS: BP 120/70; PULSE 75; TEMP 36; O2SAT 97
[2016-11-20] MEDS: ENTACAPONE 200 MG TAB PO SCH ×4 (09:24→21:00)
[2016-11-20] MEDS: DONEPEZIL HCL 10 MG TAB PO SCH (09:25)
[2016-11-20] MEDS: FINASTERIDE 5 MG TAB PO SCH (09:25)
[2016-11-20] MEDS: CHOLECALCIFEROL 1000 INTER.UNIT TAB PO SCH (09:25)
[2016-11-20] MEDS: MEGESTROL ACETATE 400 MG/10 ML UDP PO SCH (09:26)
[2016-11-20] MEDS: CARBIDOPA/LEVODOPA 25/100MG TAB PO SCH ×4 (09:28→21:00)
[2016-11-20] MEDS: LIDODERM (LIDOCAINE) PATCH 5% TD SCH (09:29)
--- NOTE | 2016-11-20 09:30 | Clinical Documentation Query ---
QUERY 1 OF 3 CLINICAL DOCUMENTATION QUERY Ms. BROOKS, In your clinical opinion is this patient being managed for: ( x ) severe protein-calorie malnutrition ( ) Other explanation of clinical findings (Please Explain) ( ) Unable to determine (Please Define) ( ) Need to Discuss ( ) Not Agree The medical record reflects the following clinical findings, treatment, and risk factors. Clinical Indicators: 81 yo male presenting with acute kidney failure. Pt's appearance is noted as emaciated. Body Straightener consult indicates pt with a 45 lb wt loss over 9 months (28%). Per report from [facility], pt has not taken anything by mouth over the past few days. Treatment: offer CBE TID with meals, monitor oral intake, wts, labs, IV fluids Risk Factors: Parkinson's disease progression Chronic Severe Malnutrition Criteria: (2 criteria needed) Energy intake: <75% of estimated energy requirement for > 1 month Wt loss: >5% in 1 month, > 7.5% in 3 months, >10% in 6 months, >20% in 1 year Body fat: severe loss of SQ fat from the orbits, triceps or fat overlying the ribs Muscle mass: severe muscle wasting at the temples, clavicles, shoulders, interosseous spaces, scapula, thigh, calf Fluid accumulation: severe localized or generalized edema of the extremities, vulva, scrotum-wt loss may be masked by edema QUERY 2 OF 3 In your clinical opinion is this patient being managed for: (x ) Metabolic encephalopathy ( ) Other explanation of clinical findings (Please Explain) ( ) Unable to determine (Please Define) ( ) Need to Discuss ( ) Not Agree The medical record reflects the following clinical findings, treatment, and risk factors. Clinical Indicators: Pt presented with Na 151, BUN 98, Cr 2.30 Treatment: IV fluids, serial PRP's Risk Factors: acute renal failure, dehydration, hypernatremia QUERY 3 OF 3 In your clinical opinion is this patient being managed for: ( x ) hypernatremia ( ) Other explanation of clinical findings (Please Explain) ( ) Unable to determine (Please Define) ( ) Need to Discuss ( ) Not Agree The medical record reflects the following clinical findings, treatment, and risk factors. Clinical Indicators: Inital Na 151 Treatment: IV fluids, serial PRP's Risk Factors: CRISS, dehydration Please clarify and document your clinical opinion in the progress notes and discharge summary. Terms such as "probable", "suspected", "likely", "questionable", "possible", or "still to be ruled out" are acceptable. IF IN AGREEMENT, YOU MUST DOCUMENT ABOVE DIAGNOSTIC STATEMENT IN DAILY PROGRESS NOTES AND DISCHARGE SUMMARY. This document is not part of the patient's record. Thank You, Yennifer Hameed RN [phone]
[2016-11-20 09:38] VITALS: O2SAT 97
--- NOTE | 2016-11-20 13:49 | Hospitalist Progress Note ---
Hospitalist Progress Note Date of Service Nov 20, 2016. (Shonda Dean PA-C) Subjective Pt evaluation today including: conversation w/ family, physical exam, chart review, lab review, review of inpatient medication list Patient unresponsive Additional Comments: Unable to obtain (Shonda Dean PA-C) Objective Vital Signs Date Time Temp Pulse Resp B/P Pulse Ox O2 Delivery O2 Flow Rate FiO2 11/20/16 09:38 97 Room Air 11/20/16 08:00 Room Air 11/20/16 07:55 36.0 75 24 120/70 97 Room Air 11/20/16 01:00 Room Air 11/19/16 22:55 36.5 74 16 107/70 99 Room Air 11/19/16 16:30 Room Air 11/19/16 15:33 36.4 93 18 118/70 98 Room Air (Shonda Dean PA-C) Physical Exam General Appearance: + cachetic, + pertinent finding (chronically ill in appearance) Neck: no JVD Respiratory/Chest: + pertinent finding (coarse breath sounds at the bases bilaterally) Cardiovascular: regular rate, rhythm Abdomen: non tender, soft, + pertinent finding (bowel sounds present, but hypoactive) Extremities: + pertinent finding (no erythema or edema noted in lower extremities bilaterally. Muscle wasting noted.) Neurologic/Psychiatric: + pertinent finding (unresponsive to verbal soon. Not following commands.) Skin: warm/dry (Shonda Dean PA-C) Laboratory Results 11/20/16 05:58 Red Blood Count 4.69, Mean Corpuscular Volume 103.0, Mean Corpuscular Hemoglobin 34.8, Mean Corpuscular Hemoglobin Concent 33.7, Mean Platelet Volume 11.9, Neutrophils (%) (Auto) 81.0, Lymphocytes (%) (Auto) 10.5, Monocytes (%) ( Auto) 7.5, Eosinophils (%) (Auto) 0.2, Basophils (%) (Auto) 0.1, Neutrophils # ( Auto) 10.12, Lymphocytes # (Auto) 1.31, Monocytes # (Auto) 0.94, Eosinophils # ( Auto) 0.02, Basophils # (Auto) 0.01 11/20/16 05:58 Test 11/20/16 05:58 White Blood Count 12.49 K/uL (4.8-10.8) Red Blood Count 4.69 M/uL (4.7-6.1) Hemoglobin 16.3 g/dL (14.0-18.0) Hematocrit 48.3 % (42-52) Mean Corpuscular Volume 103.0 fL (80-100) Mean Corpuscular Hemoglobin 34.8 pg (25-34) Mean Corpuscular Hemoglobin Concent 33.7 g/dl (32-36) Platelet Count 276 K/uL (130-400) Mean Platelet Volume 11.9 fL (7.4-10.4) Neutrophils (%) (Auto) 81.0 % Lymphocytes (%) (Auto) 10.5 % Monocytes (%) (Auto) 7.5 % Eosinophils (%) (Auto) 0.2 % Basophils (%) (Auto) 0.1 % Neutrophils # (Auto) 10.12 K/uL (1.4-6.5) Lymphocytes # (Auto) 1.31 K/uL (1.2-3.4) Monocytes # (Auto) 0.94 K/uL (0.11-0.59) Eosinophils # (Auto) 0.02 K/uL (0-0.5) Basophils # (Auto) 0.01 K/uL (0-0.2) RDW Standard Deviation 53.6 fL (36.4-46.3) RDW Coefficient of Variation 14.0 % (11.5-14.5) Immature Granulocyte % (Auto) 0.7 % Immature Granulocyte # (Auto) 0.09 K/uL (0.00-0.02) Anion Gap 8.0 mmol/L (3-11) Est Creatinine Clear Calc Drug Dose 22.6 ml/min Estimated GFR () 37.2 Estimated GFR (Non- 32.1 BUN/Creatinine Ratio 45.5 (10-20) Calcium Level 9.8 mg/dl (8.5-10.1) Magnesium Level 3.6 mg/dl (1.8-2.4) Last 24 Hours Test 11/20/16 05:58 White Blood Count 12.49 K/uL Red Blood Count 4.69 M/uL Hemoglobin 16.3 g/dL Hematocrit 48.3 % Mean Corpuscular Volume 103.0 fL Mean Corpuscular Hemoglobin 34.8 pg Mean Corpuscular Hemoglobin Concent 33.7 g/dl Platelet Count 276 K/uL Mean Platelet Volume 11.9 fL Neutrophils (%) (Auto) 81.0 % Lymphocytes (%) (Auto) 10.5 % Monocytes (%) (Auto) 7.5 % Eosinophils (%) (Auto) 0.2 % Basophils (%) (Auto) 0.1 % Neutrophils # (Auto) 10.12 K/uL Lymphocytes # (Auto) 1.31 K/uL Monocytes # (Auto) 0.94 K/uL Eosinophils # (Auto) 0.02 K/uL Basophils # (Auto) 0.01 K/uL RDW Standard Deviation 53.6 fL RDW Coefficient of Variation 14.0 % Immature Granulocyte % (Auto) 0.7 % Immature Granulocyte # (Auto) 0.09 K/uL Sodium Level 152 mmol/L Potassium Level 4.3 mmol/L Chloride Level 120 mmol/L Carbon Dioxide Level 24 mmol/L Anion Gap 8.0 mmol/L Blood Urea Nitrogen 86 mg/dl Creatinine 1.90 mg/dl Est Creatinine Clear Calc Drug Dose 22.6 ml/min Estimated GFR () 37.2 Estimated GFR (Non- 32.1 BUN/Creatinine Ratio 45.5 Random Glucose 122 mg/dl Calcium Level 9.8 mg/dl Magnesium Level 3.6 mg/dl (Shonda Dean, PAAnishC) Assessment and Plan 81 y/o M w/Hx advanced Parkinson's disease, protein calorie malnutrition. Pt's was recently admitted to the hospital and then a rehab facility following orthopedic surgery. He was exhibiting progressive weakness and lethargy at home and then placed in a nursing facility the past 2 weeks by his daughters for the purpose of receiving PT. In fact the pt's condition progressed while in the [facility]. He began refusing any PO intake and then refused all medications over the past few days including his Parkinson's meds. He became catatonic and was sent to the ER for evaluation. Initial labs reveal ARF which is likely due to dehydration. Metabolic encephalopathy likely multifactoral-secondary to dehydration, acute renal failure, Hypernatremia and UTI-growing Proteus -ceftriaxone 1 G IV daily first dose now -change IVF to 1/2 NS @ 80 cc/hr Parkinson's - unresponsive and rigid - possibly a result of abrupt medication withdrawal - family have refused an NG for administration and are leaning toward comfort measures. -Palliative care consult ARF/dehydration -improved with IVF Protein calorie Malnutrition - pt previously had a PEG and has stated that he does not want any form of assisted feeding. DVT prophylaxis -Teds, SCDs -We'll hold off on chemical means for patient comfort DNR Case discussed at length with the daughter, Kourtney. Would like to have a meeting with Palliative care tomorrow with family (Shonda Dean, PA-C) PA Physician Supervision Note: I interviewed and examined the patient. Discussed with Shonda Dean PAC and agree with findings and plan as documented in the note. Any exceptions or clarifications are listed here: None PT with significant baseline parkinsons, now locked in, minimally responsive, will need to have direction of care discussion vitals stable failed swallowing trial, as had previous Pt with hypernatremia due to poor po intake, treating possible aspiration pneumonia, will discuss direction of care with family Documented By: Demian Loyd (Demian Loyd M.D.)
[2016-11-20] MEDS ORDERED: CEFTRIAXONE SOD INJ 1 GM in DEXTROSE 5% 50ML 50 ML IV SCH (14:00)
[2016-11-20] MEDS: SODIUM CHLORIDE 0.45% 1000ML 1,000 ML IV SCH (14:23)
[2016-11-20 15:04] VITALS: BP 103/64; PULSE 82; TEMP 36.5; O2SAT 98
[2016-11-20] MEDS: AMPICILLIN/SULBACTAM SOD INJ 3,000 MG in SODIUM CHLORIDE 0.9% 100ML 100 ML IV SCH (16:26)
--- NOTE | 2016-11-20 16:32 | Palliative Care Progress Note ---
Assessment and Plan Spoke with the patient's daughter, Kourtney Souza, over phone. She will be coming to hospital later and will speak with her mother (patient's ) about a time for family meeting tomorrow. They will call me with the time. I went to patient' s room and introduced myself to patient and his . I left my card, they will call me with a time. Formal consult to follow.
[2016-11-20 23:05] VITALS: BP 134/71; PULSE 66; TEMP 36.7; O2SAT 98
[2016-11-21] MEDS: SODIUM CHLORIDE 0.45% 1000ML 1,000 ML IV SCH (02:50)
[2016-11-21] MEDS: AMPICILLIN/SULBACTAM SOD INJ 3,000 MG in SODIUM CHLORIDE 0.9% 100ML 100 ML IV SCH ×2 (03:46→16:14)
[2016-11-21 07:05] LABS: BUN/CREATININE RATIO 51.5 (10-20); CALCIUM 9.4 mg/dl (8.5-10.1); CREATININE 1.7 mg/dl (0.60-1.40); POTASSIUM 4.3 mmol/L (3.5-5.1)
[2016-11-21 07:11] VITALS: BP 116/70; PULSE 67; TEMP 36.7; O2SAT 97
[2016-11-21] MEDS: FINASTERIDE 5 MG TAB PO SCH (09:00)
[2016-11-21] MEDS: DONEPEZIL HCL 10 MG TAB PO SCH (09:00)
[2016-11-21] MEDS: MEGESTROL ACETATE 400 MG/10 ML UDP PO SCH (09:00)
[2016-11-21] MEDS: ENTACAPONE 200 MG TAB PO SCH ×4 (09:00→20:51)
[2016-11-21] MEDS: CHOLECALCIFEROL 1000 INTER.UNIT TAB PO SCH (09:00)
--- NOTE | 2016-11-21 10:06 | Palliative Care Consultation ---
Consultation Date of Consultation: Nov 21, 2016. Requesting Physician: Shonda Dean PA-C Attending Physician: Shonda Dean PA-C; Dr. Loyd Reason for Consultation: Goals of care History of Present Illness This 81 year old male patient presented to the ED three days ago with complaints of dehydration and catatonia per record. The patient has a history of Parkinson's disease and was recently in the [facility] fdc while his was recovering from orthopedic surgery. Per the family, the patient was not eating or drinking while at the [facility] and he was not taking his PO medications including Parkinson's meds. When he came home from the fdc he became progressively weak, lethargic and severely dehydrated, so the family brought him to the ED. His BUN and creatinine were 98 and 2.3, UA positive for UTI, and Na+ was 151. IVF given, antibiotics started. Patient's mental status initially improved per the family as he was more awake and able to communicate with some words. However, despite ongoing IVF and IV abx, the patient has declined: becoming nonverbal, unable to get OOB, and hardly taking anything in PO. He again failed his swallow evaluation as he has in the past, but the family chose to continue comfort feeding as the patient had a PEG tube a few years ago and was very adamant about never wanting a feeding tube again. Family chose to place an emphasis on comfort and wanted no heroic measures. Palliative care consulted to establish goals of care. I met with the patient, patient's daughters: Kourtney Souza and Sonal, and patient' s , Anna, in room 384-2. The patient is cachectic and nonverbal in [facility] bed, but eyes are open and tracking. He occasionally follows a command such as wiggling toes/moving extremities. He shows no signs of pain or discomfort at this time. The family and I had a lengthy discussion about patient's condition and goals of care. At baseline, before patient's stay at fdc, he was mostly in a wheelchair but could do transfers, feed himself and somewhat communicate by mouthing words and occasionally speaking. , Anna, is the main caregiver in the home. They all agreed that the patient has had a very significant decline and understand that recovery back to a functional state is not likely at this point. Despite our supportive treatment, the patient has not improved and has actually declined in the last couple days. The and daughters state that they are deciding on a facility: [facility] vs. [facility]; but are certain that they would like the patient to be on hospice when he does go. For now, they'd like to continue current treatment until they are able to talk to their brother in [place] and tell him to come here. Once decision is made for facility and discharge, they are okay with stopping IVF and abx. Past Medical/Surgical History Medical History: Parkinson's disease Pneumonia Dysphagia Surgical History: PEG tube Social History Smoking Status: Unknown if Ever Smoked History of Alcohol Use: No Drug Use: none Marital Status: Housing Status: lives with family Review of Systems Constitutional: + weakness, + weight loss ENT: + trouble swallowing (requiring honey thickened liquids ) Respiratory: No dyspnea on exertion, No shortness of breath Cardiac: No edema Abdomen: No nausea, No vomiting Male : + incontinence limited ROS provided by family, patient nonverbal Allergies Coded Allergies: Scopolamine (Verified Allergy, Severe, confusion, 10/14/16) Medications Current Inpatient Medications Medications (Trade) Dose Ordered Sig/Ron Route Start Time Stop Time Status Last Admin Dose Admin Baclofen (Lioresal Tab) 10 mg TID PRN PO 11/19/16 02:15 12/19/16 02:14 Cholecalciferol (Vitamin D Tab) 1,000 inter.unit DAILY PO 11/19/16 09:00 12/19/16 08:59 11/20/16 09:25 1,000 INTER.UNIT Donepezil HCl (Aricept Tab) 10 mg DAILY PO 11/19/16 09:00 12/19/16 08:59 11/20/16 09:25 10 MG Finasteride (Proscar Tab) 5 mg DAILY PO 11/19/16 09:00 12/19/16 08:59 11/20/16 09:25 5 MG Lidocaine (Lidoderm Patch 5%) 1 patch DAILY TD 11/19/16 09:00 12/19/16 08:59 11/20/16 09:29 1 PATCH Megestrol Acetate (Megace Susp) 400 mg DAILY PO 11/19/16 09:00 12/19/16 08:59 11/20/16 09:26 400 MG Terazosin HCl (Hytrin Cap) 5 mg HS PO 11/19/16 21:00 12/19/16 20:59 11/19/16 21:19 5 MG Carbidopa/Levodopa (Sinemet 25/ 100MG Tab) 2 tab QID PO 11/19/16 09:00 12/19/16 08:59 11/20/16 16:29 2 TAB Miscellaneous (Remove Lidoderm Patch) 1 ea DAILY@21 N/A 11/19/16 21:00 12/19/16 20:59 11/20/16 21:10 1 EA Morphine Sulfate (MoRPHine SULFATE INJ) 2 mg Q3H PRN IV 11/19/16 02:15 12/03/16 02:14 Ondansetron HCl (Zofran Inj) 4 mg Q6H PRN IV 11/19/16 02:15 12/19/16 02:14 Entacapone 200 mg 200 mg QID PO 11/19/16 09:00 12/19/16 08:59 11/20/16 16:29 200 MG Lorazepam 0.5 mg/ Syringe 1 ml @ 1 mls/min Q3H PRN IV 11/19/16 03:00 12/19/16 02:59 Sodium Chloride 1,000 ml @ 80 mls/hr [id number] IV 11/20/16 13:45 11/21/16 14:44 11/21/16 02:50 80 MLS/HR Ampicillin Sodium/ Sulbactam Sodium/ Sodium Chloride (Unasyn Inj/Nss 100ml) 108 ml @ 200 mls/hr Q12H IV 11/20/16 16:00 11/30/16 15:59 11/21/16 03:46 200 MLS/HR Physical Exam Date Time Temp Pulse Resp B/P Pulse Ox O2 Delivery O2 Flow Rate FiO2 11/21/16 07:11 36.7 67 14 116/70 97 Room Air 11/21/16 00:50 Room Air 11/20/16 23:05 36.7 66 18 134/71 98 Room Air 11/20/16 15:45 Room Air 11/20/16 15:04 36.5 82 16 103/64 98 Room Air 11/20/16 09:38 97 Room Air General Appearance: + cachetic, + thin, + pertinent finding (chronically ill appearing) Neck: no JVD Respiratory: no respiratory distress, no accessory muscle use, + pertinent finding (room air) Cardiovascular: regular rate, rhythm, no edema, + normal peripheral pulses Abdomen: normal bowel sounds, soft Neurologic/Psychiatric: alert, + pertinent finding (nonverbal) Laboratory Results Last 24 Hours Test 11/21/16 06:00 Sodium Level 155 mmol/L Potassium Level 4.3 mmol/L Chloride Level 125 mmol/L Carbon Dioxide Level 21 mmol/L Anion Gap 9.0 mmol/L Blood Urea Nitrogen 88 mg/dl Creatinine 1.70 mg/dl Est Creatinine Clear Calc Drug Dose 25.2 ml/min Estimated GFR () 42.6 Estimated GFR (Non- 36.7 BUN/Creatinine Ratio 51.5 Random Glucose 94 mg/dl Calcium Level 9.4 mg/dl Assessment & Plan Palliative Performance Scale: 20 % Problem list: Altered mental status/nonverbal 2/2 Parkinson's Ambulatory dysfunction Parkinson's disease Acute kidney injury 2/2 dehydration UTI- culture negative ?Aspiration pneumonia Goals of care (Z51.5) Palliative care plan: Discussed with patient's , two daughters, and Shonda Dean PA-C. -DNR/DNI per patient and family's wishes. -Goal is for comfort but also to see if any improvement in mental status and/or strength. Family understands this is not likely. -Continue current treatment with IVF and IV abx for the next 24 hours and reevaluate for any improvement. Either way, patient will be discharged to SNF wit hospice: [facility] vs. [facility]. -If patient able to eat/drink, offer comfort feedings despite risk of aspiration. Thank you kindly for this consult. I will follow as needed.
[2016-11-21] MEDS: CARBIDOPA/LEVODOPA 25/100MG TAB PO SCH ×4 (10:58→20:51)
[2016-11-21] MEDS: LIDODERM (LIDOCAINE) PATCH 5% TD SCH (11:09)
[2016-11-21] MEDS: DEXTROSE 5% 1000ML 1,000 ML IV SCH (11:12)
--- NOTE | 2016-11-21 12:35 | Hospitalist Progress Note ---
Hospitalist Progress Note Date of Service Nov 21, 2016. (Shonda Dean PA-C) Subjective Pt evaluation today including: conversation w/ family, physical exam, chart review, lab review, conversation w/ workday consultant, review of inpatient medication list Patient remains unresponsive Additional Comments: Unable to obtain (Shonda Dean PA-C) Objective Vital Signs Date Time Temp Pulse Resp B/P Pulse Ox O2 Delivery O2 Flow Rate FiO2 11/21/16 07:11 36.7 67 14 116/70 97 Room Air 11/21/16 00:50 Room Air 11/20/16 23:05 36.7 66 18 134/71 98 Room Air 11/20/16 15:45 Room Air 11/20/16 15:04 36.5 82 16 103/64 98 Room Air (Shonda Dean PA-C) Physical Exam General Appearance: no apparent distress ENT: + pertinent finding (oral mucosa dry) Neck: no JVD Respiratory/Chest: lungs clear Cardiovascular: regular rate, rhythm Abdomen: non tender, soft, + pertinent finding (bowel sounds hypoactive) Extremities: no pedal edema Neurologic/Psychiatric: + pertinent finding (unresponsive) Skin: warm/dry (Shonda Dean PA-C) Laboratory Results 11/21/16 06:00 Test 11/21/16 06:00 Anion Gap 9.0 mmol/L (3-11) Est Creatinine Clear Calc Drug Dose 25.2 ml/min Estimated GFR () 42.6 Estimated GFR (Non- 36.7 BUN/Creatinine Ratio 51.5 (10-20) Calcium Level 9.4 mg/dl (8.5-10.1) Last 24 Hours Test 11/21/16 06:00 Sodium Level 155 mmol/L Potassium Level 4.3 mmol/L Chloride Level 125 mmol/L Carbon Dioxide Level 21 mmol/L Anion Gap 9.0 mmol/L Blood Urea Nitrogen 88 mg/dl Creatinine 1.70 mg/dl Est Creatinine Clear Calc Drug Dose 25.2 ml/min Estimated GFR () 42.6 Estimated GFR (Non- 36.7 BUN/Creatinine Ratio 51.5 Random Glucose 94 mg/dl Calcium Level 9.4 mg/dl (Shonda Dean PA-C) Assessment and Plan 81 y/o M w/Hx advanced Parkinson's disease, protein calorie malnutrition. Pt's was recently admitted to the hospital and then a rehab facility following orthopedic surgery. He was exhibiting progressive weakness and lethargy at home and then placed in at [facility] for the past 2 weeks by his daughters for the purpose of receiving PT. In fact the pt's condition worsened while in the longterm. He began refusing any PO intake and then refused all medications over the past few days including his Parkinson's meds. He became catatonic and was sent to the ER for evaluation. Initial labs reveal ARF which is likely due to dehydration. Metabolic encephalopathy likely multifactoral-secondary to dehydration, acute renal failure, Hypernatremia and UTI-growing Proteus -unasyn 3 G iv q 6 hr (will cover aspiration PNA too). Day 2/7 Dysphagia-aspirating all consistencies -Pt may have pleasure feeds per family/pt wishes Parkinson's - unresponsive and rigid - possibly a result of abrupt medication withdrawal - family have refused an NG for administration and are leaning toward comfort measures. -pt not able to swallow meds at this point ARF/dehydration-Cr continues to improve 1.7 today Hypernatremia secondary to dehydration -Change IVF to D5W @ 80 cc/hr Severe Protein calorie Malnutrition -pt previously had a PEG and has stated that he does not want any form of assisted feeding. DVT prophylaxis -Teds, SCDs -We'll hold off on chemical means for patient comfort CODE STATUS -LEVEL V DO NO RESUSCITATE DISPO -plan is for pt to be treated for current UTI/possible aspiration PNA with a 7 day course of ABX then transition to hospice possibly at [facility]. Pt's family is looking a SNF's in the area -Possibly d/c tmrw on ABX (Shonda Dean, PA-C) PA Physician Supervision Note: I interviewed and examined the patient. Discussed with Shonda Dean PAC and agree with findings and plan as documented in the note. Any exceptions or clarifications are listed here: None PT with significant baseline parkinsons, now locked in, minimally responsive, Ms dean did have direction of care discussion with family, to treat current infection and move to snf for eventual comfort care vitals stable failed swallowing trial, as had previous Pt with hypernatremia due to poor po intake, treating possible aspiration pneumonia, uti poa, treat with levaquin and move to snf for comfort measures Documented By: Demian Loyd (Demian Loyd M.D.)
[2016-11-21 15:38] VITALS: BP 131/71; PULSE 68; TEMP 36.4; O2SAT 99
[2016-11-21 23:20] VITALS: BP 116/55; PULSE 58; TEMP 36.7; O2SAT 99
[2016-11-22] MEDS: DEXTROSE 5% 1000ML 1,000 ML IV SCH (00:21)
[2016-11-22] MEDS: AMPICILLIN/SULBACTAM SOD INJ 3,000 MG in SODIUM CHLORIDE 0.9% 100ML 100 ML IV SCH ×2 (03:48→16:55)
[2016-11-22 07:47] VITALS: BP 124/60; PULSE 62; TEMP 36.8; O2SAT 99
[2016-11-22 08:02] VITALS: O2SAT 99
[2016-11-22 08:27] LABS: BUN/CREATININE RATIO 47.7 (10-20); CALCIUM 8.8 mg/dl (8.5-10.1); CREATININE 1.3 mg/dl (0.60-1.40); MAGNESIUM 3.1 mg/dl (1.8-2.4); POTASSIUM 3.9 mmol/L (3.5-5.1)
[2016-11-22] MEDS: MoRPHine SULFATE 2 MG/ML CARP IV PRN (09:31)
[2016-11-22] MEDS: CARBIDOPA/LEVODOPA 25/100MG TAB PO SCH ×4 (09:36→20:14)
[2016-11-22] MEDS: LIDODERM (LIDOCAINE) PATCH 5% TD SCH (09:37)
[2016-11-22] MEDS: ENTACAPONE 200 MG TAB PO SCH ×4 (09:37→20:14)
[2016-11-22] MEDS: DONEPEZIL HCL 10 MG TAB PO SCH (09:37)
[2016-11-22] MEDS: FINASTERIDE 5 MG TAB PO SCH (09:51)
[2016-11-22] MEDS: CHOLECALCIFEROL 1000 INTER.UNIT TAB PO SCH (09:51)
[2016-11-22] MEDS: MEGESTROL ACETATE 400 MG/10 ML UDP PO SCH (09:51)
[2016-11-22] MEDS ORDERED: OXYC10SO PO (11:05)
[2016-11-22] MEDS ORDERED: [UNRECOGNIZED DRUG - CODE] PO (11:05)
[2016-11-22] MEDS ORDERED: CARB25TA12 PO (11:05)
[2016-11-22] MEDS ORDERED: [UNRECOGNIZED DRUG - CODE] IV (11:05)
--- NOTE | 2016-11-22 11:14 | Discharge Instructions ---
Discharge Instructions Date of Service Nov 22, 2016. Admission Reason for Admission: Arf, Parkinson Disease Discharge Discharge Diagnosis / Problem: acute renal failure, dehydration, UTI Discharge Goals Goal(s): Decrease discomfort Activity Recommendations Activity Limitations: per Instructions/Follow-up section Exercise/Sports Limitations: as tolerated . Instructions / Follow-Up Instructions / Follow-Up You had been treated in the hospital for acute kidney failure secondary to dehydration from poor oral intake. You also have been treated for a urinary tract infection The following additions have been made to your medication list: -Augmentin 800 mg two times daily for 4 days -Roxicodone solution 5 mL's every 4 hours as needed for pain -Ativan 1 mg every 3 hours as needed for anxiety or agitation Plan with the family has been decided to treat the current urinary tract infection and transition to hospice care The patient may have a diet as tolerated. It was recommended that he have honey thick liquids. The patient prefers regular liquids. Please call your family doctor for any new concerns Current Hospital Diet Patient's current hospital diet: Regular Diet Discharge Diet Recommended Diet: Regular Diet Diet Texture: Pureed (blended smooth) Procedures Procedures Performed: CT head Impression: Chronic and postoperative change. No acute intracranial abnormality. Pending Studies Studies pending at discharge: no Laboratory Results 11/22/16 07:46 Test 11/22/16 07:46 Anion Gap 6.0 mmol/L (3-11) Est Creatinine Clear Calc Drug Dose 33.0 ml/min Estimated GFR () 58.9 Estimated GFR (Non- 50.8 BUN/Creatinine Ratio 47.7 (10-20) Calcium Level 8.8 mg/dl (8.5-10.1) Magnesium Level 3.1 mg/dl (1.8-2.4) Medical Emergencies . Who to Call and When: Medical Emergencies: If at any time you feel your situation is an emergency, please call 911 immediately. . Non-Emergent Contact Non-Emergency issues call your: Primary Care Provider . . "Provider Documentation" section prepared by Shonda Dean. VTE Core Measure Inpt VTE Proph given/why not?: Treatment not indicated [place] Drug Monitoring Program Search Results: no issues identified
--- NOTE | 2016-11-22 11:26 | Discharge Summary ---
Discharge Summary Date of Service Nov 22, 2016. Discharge Summary Admission Date: Nov 19, 2016 at 02:17 Discharge Date: Nov 23, 2016 [facility] Principal Diagnosis: acute renal failure, dehydration, hypernatremia, UTI Problems/Secondary Diagnoses: Parkinson's disease Immunizations: Have You Had Influenza Vaccine: Yes Influenza Vaccine Date: May 25, 2013 History of Tetanus Vaccine?: No History of Pneumococcal: Yes Pneumococcal Date: Aug 04, 2009 History of Hepatitis B Vaccine: No Procedures: CT head Impression: Chronic and postoperative change. No acute intracranial abnormality. Consultations: Palliative care consult Medication Reconciliation New Medications: Amoxicillin/Clavulanate Potas (Augmentin Susp) 200 Mg/5 Ml Susp 5 ML PO 800 PRN for bid for 3 Days, ML Carbidopa/Levodopa (Sinemet 25MG/100MG) Tab 2 TAB PO QID for 30 Days, TAB Lorazepam (Ativan) 4 Mg/Ml Inj 1 MG PO Q3H for Anxiety/Agitation, #30 DOSE Lorazepam (Ativan) 1 Mg Tab 1 MG SL Q3H PRN for a for 15 Days, #120 TAB Oxycodone Hcl (Roxycodone Oral Soln) 5 Mg/5 Ml Yaneth 5 MG PO Q4H for Pain, #30 DOSE Continued Medications: Acetaminophen (Tylenol) 325 Mg Tab 650 MG PO Q6H PRN for Pain or Fever, TAB NEEDED FOR PAIN # 1-5 OR TEMP > 101f. NTE 3GM APAP/24HRS Baclofen (Lioresal) 10 Mg Tab 10 MG PO TID PRN for Pain, TAB Bxsdsyxpj-Ggzdhrrm-Anqniyfexv (Carbidopa/Levodopa/Entaca) 1 Tab Tab 1 TAB PO QID [id number] Polyethylene Glycol 3350 (Miralax) 1 Pow Pow 17 GM PO DAILY PRN for Constipation, #527 GM Pramipexole Dihydrochloride (Mirapex) 0.25 Mg Tab 0.25 MG PO HS, TAB Terazosin (Hytrin) 5 Mg Cap 5 MG PO HS Discontinued Medications: Cefdinir (Omnicef) 300 Mg Cap 300 MG PO Q12H for 5 Days, #10 CAP BEGIN 11/18/16 X5 DAYS Ceftriaxone Sod (Rocephin) 1 Gm Inj 1 GM IM DAILY for 5 Days, VIAL BEGIN 11/18/16 X 5 DAYS. MIX WITH 2.1ML 1% LIDOCAINE. Cholecalciferol (Vitamin D3) 1,000 Unit Tab 2000 TAB PO DAILY for 90 Days, TAB 3 Refills Cholecalciferol (Vitamin D3) 1,000 Unit Tab 1000 UNITS PO DAILY, TAB Donepezil Hydrochloride (Aricept) 10 Mg Tab 10 MG PO DAILY Finasteride (Proscar) 5 Mg Tab 5 MG PO DAILY Gabapentin (Neurontin) 100 Mg Cap 100 MG PO BID, CAP Lidocaine (Lidoderm Patch 5%) 1 Ea Tdsy 1 APPLN TD DAILY APPLY TO LEFT LATERAL THIGH DAILY IN AM. REMOVE AT HS. Lorazepam (Ativan) 0.5 Mg Tab 0.25 MG PO TID PRN for Anxiety, TAB Megestrol Acetate (Megace Oral) 40 Mg/Ml Greer 400 MG PO DAILY Tramadol (Ultram) 50 Mg Tab 50 MG PO Q8H, TAB Discharge Exam Patient able to nod his head that he has some pain. Points to his lower abdomen. Otherwise, cannot answer questions. Physical Exam: General Appearance: + mild distress (mild discomfort), + cachetic ENT: + pertinent finding (oral mucosa dry) Respiratory/Chest: lungs clear Cardiovascular: regular rate, rhythm Abdomen / GI: soft, + pertinent finding (mild tenderness to palpation in the left upper quadrant. Nondistended. Bowel sounds present.) Extremities: + pertinent finding (muscle wasting noted in the lower extremities bilaterally.) Neurologic/Psychiatric: + pertinent finding (more alert this morning. Does not follow commands.) Skin: warm/dry Hospital Course 81 y/o M w/Hx advanced Parkinson's disease, protein calorie malnutrition. Pt's was recently admitted to the hospital and then a rehab facility following orthopedic surgery. He was exhibiting progressive weakness and lethargy at home and then placed in at [facility] for the past 2 weeks by his daughters for the purpose of receiving PT. In fact the pt's condition worsened while in the fdc. He began refusing any PO intake and then refused all medications over the past few days including his Parkinson's meds. He became catatonic and was sent to the ER for evaluation. Initial labs reveal ARF which is likely due to dehydration. Metabolic encephalopathy likely multifactoral-secondary to dehydration, acute renal failure, Hypernatremia and UTI-growing Proteus -unasyn 3 G iv q 6 hr (will cover aspiration PNA too). Day 3/7 -Complete antibiotic course Dysphagia-aspirating all consistencies -Pt may have pleasure feeds per family/pt wishes -He does not like thickened liquids Parkinson's - unresponsive and rigid upon admission - possibly a result of abrupt medication withdrawal - family have refused an NG for administration and are leaning toward comfort measures. -Sinemet was continued as tolerated. The patient was able to take his medications with applesauce on the last day of admission ARF/creatinine improved during hospital course. At 1.3 the day of discharge -Would expect this to worsen once IV fluids are withdrawn Hypernatremia secondary to dehydration-mild improvement. Sodium 153 on day of discharge -Treated with IV fluids Severe Protein calorie Malnutrition -pt previously had a PEG and has stated that he does not want any form of assisted feeding. DVT prophylaxis -Teds, SCDs -We'll hold off on chemical means for patient comfort CODE STATUS -LEVEL V DO NO RESUSCITATE DISPO -plan is for pt to be treated for current UTI/possible aspiration PNA with a 7 day course of ABX then transition to hospice -DC to SNF with hospice Total Time Spent: Greater than 30 minutes This includes examination of the patient, discharge planning, medication reconciliation, and communication with other providers. Discharge Instructions Please refer to the electronic Patient Visit Report (Discharge Instructions) for additional information. Additional Copies To Darrel Morgan M.D.
--- NOTE | 2016-11-22 11:31 | Hospitalist Progress Note ---
Hospitalist Progress Note Date of Service Nov 22, 2016. Subjective Pt evaluation today including: conversation w/ patient, conversation w/ family , physical exam, lab review, conversation w/ fitness sales consultant, review of inpatient medication list Patient seems to be complaining of lower abdominal pain. Cannot tell me anything else. Additional Comments: Unable to obtain secondary to mental state Objective Vital Signs Date Time Temp Pulse Resp B/P Pulse Ox O2 Delivery O2 Flow Rate FiO2 11/22/16 08:02 99 Room Air 11/22/16 07:47 36.8 62 20 124/60 99 Room Air 11/21/16 23:20 36.7 58 16 116/55 99 Room Air 11/21/16 20:20 Room Air 11/21/16 15:38 36.4 68 18 131/71 99 Room Air Physical Exam General Appearance: + mild distress (in mild discomfort), + cachetic Respiratory/Chest: lungs clear Cardiovascular: regular rate, rhythm Abdomen: soft, + pertinent finding (tenderness to palpation appreciated in the left upper quadrant) Extremities: no pedal edema, + pertinent finding (muscle wasting noted) Neurologic/Psychiatric: + pertinent finding (eyes are open this morning. Does not follow commands.) Skin: warm/dry Laboratory Results 11/22/16 07:46 Test 11/22/16 07:46 Anion Gap 6.0 mmol/L (3-11) Est Creatinine Clear Calc Drug Dose 33.0 ml/min Estimated GFR () 58.9 Estimated GFR (Non- 50.8 BUN/Creatinine Ratio 47.7 (10-20) Calcium Level 8.8 mg/dl (8.5-10.1) Magnesium Level 3.1 mg/dl (1.8-2.4) Last 24 Hours Test 11/22/16 07:46 Sodium Level 153 mmol/L Potassium Level 3.9 mmol/L Chloride Level 125 mmol/L Carbon Dioxide Level 22 mmol/L Anion Gap 6.0 mmol/L Blood Urea Nitrogen 62 mg/dl Creatinine 1.30 mg/dl Est Creatinine Clear Calc Drug Dose 33.0 ml/min Estimated GFR () 58.9 Estimated GFR (Non- 50.8 BUN/Creatinine Ratio 47.7 Random Glucose 103 mg/dl Calcium Level 8.8 mg/dl Magnesium Level 3.1 mg/dl Assessment and Plan 81 y/o M w/Hx advanced Parkinson's disease, protein calorie malnutrition. Pt's was recently admitted to the hospital and then a rehab facility following orthopedic surgery. He was exhibiting progressive weakness and lethargy at home and then placed in at [facility] for the past 2 weeks by his daughters for the purpose of receiving PT. In fact the pt's condition worsened while in the alf. He began refusing any PO intake and then refused all medications over the past few days including his Parkinson's meds. He became catatonic and was sent to the ER for evaluation. Initial labs reveal ARF which is likely due to dehydration. Metabolic encephalopathy likely multifactoral-secondary to dehydration, acute renal failure, Hypernatremia and UTI-growing Proteus -More alert today Continue Unasyn day / Dysphagia-aspirating all consistencies -Pt may have pleasure feeds per family/pt wishes -He does not like thickened liquids Parkinson's - unresponsive and rigid upon admission - possibly a result of abrupt medication withdrawal - family have refused an NG for administration and are leaning toward comfort measures. -Continue Sinemet as tolerated ARF/creatinine improved during hospital course. At 1.3 today -We'll continue IV fluids while patient is in house Hypernatremia secondary to dehydration-mild improvement. Sodium 153 -continue IVF Severe Protein calorie Malnutrition -pt previously had a PEG and has stated that he does not want any form of assisted feeding. DVT prophylaxis -Teds, SCDs CODE STATUS -LEVEL V DO NO RESUSCITATE DISPO -Finish antibiotic course per patient's family's wishes -Ready for discharge. Awaiting placement -DC to SNF with hospice
[2016-11-22] MEDS ORDERED: ATV/1 SL (13:59)
[2016-11-22] MEDS ORDERED: AMOX200S11 PO (13:59)
[2016-11-22 16:00] VITALS: BP 130/66; PULSE 66; TEMP 36.5; O2SAT 100
[2016-11-22 20:16] VITALS: BP 110/61; PULSE 68
[2016-11-22 23:20] VITALS: BP 127/66; PULSE 68; TEMP 36.4; O2SAT 99
[2016-11-23] MEDS: AMPICILLIN/SULBACTAM SOD INJ 3,000 MG in SODIUM CHLORIDE 0.9% 100ML 100 ML IV SCH ×2 (04:19→17:18)
[2016-11-23 07:34] VITALS: BP 153/71; PULSE 72; TEMP 36.5; O2SAT 100
[2016-11-23 07:48] LABS: BUN/CREATININE RATIO 39.1 (10-20); CALCIUM 8.6 mg/dl (8.5-10.1); CREATININE 1.2 mg/dl (0.60-1.40); POTASSIUM 4.4 mmol/L (3.5-5.1)
[2016-11-23] MEDS: MoRPHine SULFATE 2 MG/ML CARP IV PRN (07:50)
[2016-11-23] MEDS: CARBIDOPA/LEVODOPA 25/100MG TAB PO SCH ×4 (10:04→21:43)
[2016-11-23] MEDS: LIDODERM (LIDOCAINE) PATCH 5% TD SCH (10:04)
[2016-11-23] MEDS: ENTACAPONE 200 MG TAB PO SCH ×4 (10:04→21:43)
[2016-11-23] MEDS: FINASTERIDE 5 MG TAB PO SCH (10:05)
[2016-11-23] MEDS: MEGESTROL ACETATE 400 MG/10 ML UDP PO SCH (10:05)
[2016-11-23] MEDS: CHOLECALCIFEROL 1000 INTER.UNIT TAB PO SCH (10:06)
[2016-11-23] MEDS: DONEPEZIL HCL 10 MG TAB PO SCH (10:06)
--- NOTE | 2016-11-23 12:56 | Hospitalist Progress Note ---
Hospitalist Progress Note Date of Service Nov 23, 2016. (Shonda Dean PA-C) Subjective Pt evaluation today including: conversation w/ family, physical exam, lab review, review of inpatient medication list Patient shakes his head no when asked if he is having any pain. Otherwise not communicating. Additional Comments: Unable to obtain secondary to mental status (Shonda Dean PA-C) Objective Vital Signs Date Time Temp Pulse Resp B/P Pulse Ox O2 Delivery O2 Flow Rate FiO2 11/23/16 08:10 Room Air 11/23/16 07:34 36.5 72 16 153/71 100 Room Air 11/22/16 23:20 36.4 68 16 127/66 99 Room Air 11/22/16 20:16 68 110/61 11/22/16 19:45 Room Air 11/22/16 16:00 36.5 66 17 130/66 100 Room Air Nasal Cannula (Shonda Dean PA-C) Physical Exam General Appearance: + pertinent finding (more alert today. Opening eyes. Shaking his head. Does not follow commands. No apparent distress noted.) ENT: + pertinent finding (oral mucosa dry) Neck: no JVD Respiratory/Chest: lungs clear Cardiovascular: regular rate, rhythm Abdomen: + pertinent finding (emaciated. Bowel sounds present. No tenderness appreciated.) Extremities: no pedal edema, + pertinent finding (muscle wasting noted.) Neurologic/Psychiatric: + pertinent finding (more alert today as noted. Able to shake his head no. Otherwise, does not follow commands.) Skin: warm/dry (Shonda Dean PA-C) Laboratory Results 11/23/16 06:54 Test 11/23/16 06:54 Anion Gap 8.0 mmol/L (3-11) Est Creatinine Clear Calc Drug Dose 35.7 ml/min Estimated GFR () 64.9 Estimated GFR (Non- 56.0 BUN/Creatinine Ratio 39.1 (10-20) Calcium Level 8.6 mg/dl (8.5-10.1) Last 24 Hours Test 11/23/16 06:54 Sodium Level 157 mmol/L Potassium Level 4.4 mmol/L Chloride Level 126 mmol/L Carbon Dioxide Level 23 mmol/L Anion Gap 8.0 mmol/L Blood Urea Nitrogen 47 mg/dl Creatinine 1.20 mg/dl Est Creatinine Clear Calc Drug Dose 35.7 ml/min Estimated GFR () 64.9 Estimated GFR (Non- 56.0 BUN/Creatinine Ratio 39.1 Random Glucose 83 mg/dl Calcium Level 8.6 mg/dl (Shonda Dean PA-C) Assessment and Plan 81 y/o M w/Hx advanced Parkinson's disease, protein calorie malnutrition. Pt's was recently admitted to the hospital and then a rehab facility following orthopedic surgery. He was exhibiting progressive weakness and lethargy at home and then placed at [facility] for the past 2 weeks by his daughters for the purpose of receiving PT. In fact the pt's condition worsened while in the senior living. He began refusing any PO intake and then refused all medications over the past few days including his Parkinson's meds. He became catatonic and was sent to the ER for evaluation. Initial labs reveal ARF which is likely due to dehydration. Metabolic encephalopathy likely multifactoral-secondary to dehydration, acute renal failure, Hypernatremia and UTI-growing Proteus -Mental state better today. Eyes open. Continue Unasyn day 01/07 -Plan is to DC to [facility] with Augmentin for a total antibiotic course of 7 days Dysphagia-aspirating all consistencies -Pt may have pleasure feeds per family/pt wishes -He does not like thickened liquids Parkinson's - unresponsive and rigid upon admission - possibly a result of abrupt medication withdrawal. Somewhat improved today. -Patient was able to take his Parkinson's medications yesterday. -Continue Sinemet as tolerated ARF/creatinine improved during hospital course. At 1.2 today -We'll continue IV fluids while patient is in house Hypernatremia secondary to dehydration-sodium worse today at 157 -continue IVF while in-house. Expect that this will deteriorate quickly when IV fluids are withdrawn Severe Protein calorie Malnutrition -pt previously had a PEG and has stated that he does not want any form of assisted feeding. DVT prophylaxis -Teds, SCDs CODE STATUS -LEVEL V DO NO RESUSCITATE DISPO -Finish antibiotic course per patient's family's wishes -Ready for discharge. Awaiting placement -DC to critical access hospital tomorrow (Shonda Dean PA-C) PA Physician Supervision Note: I interviewed and examined the patient. Discussed with Shonda Dean PAC and agree with findings and plan as documented in the note. Any exceptions or clarifications are listed here: None PT with significant baseline parkinsons, per Ms Urbans care discussion with family, complete treatment of infection and move to snf for hospice care very little change in day to day management vitals stable Pt is able to turn to voice, wispers nonsensical words, appears comfortable treating possible aspiration pneumonia, uti poa, with unasyn, consider transition to augmentin and move to snf for comfort measures Documented By: Demian Loyd (Demian Loyd M.D.)
[2016-11-23] MEDS: DEXTROSE 5% 1000ML 1,000 ML IV SCH (13:26)
[2016-11-23 15:09] VITALS: BP 133/89; PULSE 70; TEMP 36.9; O2SAT 92
--- NOTE | 2016-11-23 15:13 | Palliative Care Progress Note ---
Palliative Care Progress Note Date of Service Nov 23, 2016. Subjective Pt evaluation today including: conversation w/ patient, conversation w/ family (), physical exam, conversation w/ benefits sales consultant, review of inpatient medication list Pain: shook head "No" Voiding: kim catheter in place -More awake and alert today. Still nonverbal and nonambulatory -Have made several phone calls to family to try and meet and discuss POLST form. was to call me yesterday and again today when family was here, but no call. I went to patient's room three times today, no family at bedside. I did speak with , Anna, just now who said she just left hospital. I asked about continuing lab work and abx, but she stated her daughter "would be the one to ask." I called and left a message with Kourtney Souza. Kourtney called me back and said they still wanted the abx and IVF for the hypernatremia. Review of Systems unable to obtain Objective Vital Signs Date Time Temp Pulse Resp B/P Pulse Ox O2 Delivery O2 Flow Rate FiO2 11/23/16 08:10 Room Air 11/23/16 07:34 36.5 72 16 153/71 100 Room Air 11/22/16 23:20 36.4 68 16 127/66 99 Room Air 11/22/16 20:16 68 110/61 11/22/16 19:45 Room Air 11/22/16 16:00 36.5 66 17 130/66 100 Room Air Nasal Cannula Physical Exam General Appearance: no apparent distress, + thin, + pertinent finding ( chronically ill appearing) ENT: + pertinent finding (right eye not open) Neck: no JVD Respiratory/Chest: no respiratory distress, no accessory muscle use, + pertinent finding (room air) Cardiovascular: regular rate, rhythm, no edema, + normal peripheral pulses Abdomen: normal bowel sounds, non tender, soft Extremities: + pertinent finding (somewhat rigid) Neurologic/Psychiatric: alert, + pertinent finding (nonverbal) Laboratory Results Last 24 Hours Test 11/23/16 06:54 Sodium Level 157 mmol/L Potassium Level 4.4 mmol/L Chloride Level 126 mmol/L Carbon Dioxide Level 23 mmol/L Anion Gap 8.0 mmol/L Blood Urea Nitrogen 47 mg/dl Creatinine 1.20 mg/dl Est Creatinine Clear Calc Drug Dose 35.7 ml/min Estimated GFR () 64.9 Estimated GFR (Non- 56.0 BUN/Creatinine Ratio 39.1 Random Glucose 83 mg/dl Calcium Level 8.6 mg/dl Assessment and Plan Problem list: Altered mental status/nonverbal 2/2 Parkinson's Ambulatory dysfunction Parkinson's disease Acute kidney injury 2/2 dehydration UTI- culture negative ?Aspiration pneumonia Goals of care (Z51.5) Palliative care plan: -[facility] tomorrow with [facility] -Per Shonda Dean's note- switching to PO antibiotics on discharge -Left POLST form at bedside, Kourtney states they will fill it out. I'll check in tomorrow on this Thank you again for this consult. Please contact me with any further palliative care needs. Palliative Performance Scale: 20 % Discharge planning: nursing home facility (with hospice)
[2016-11-23 15:18] VITALS: BP 124/69; PULSE 67; TEMP 36.4; O2SAT 99
--- NOTE | 2016-11-23 15:44 | Progress Note ---
Subjective Date of Service: Nov 23, 2016. Problem List Medical Problems: (1) Altered mental status Status: Acute (2) Altered mental status Status: Acute (3) Bakers cyst Status: Acute (4) Fever Status: Acute Objective Vital Signs Date Time Temp Pulse Resp B/P Pulse Ox O2 Delivery O2 Flow Rate FiO2 11/23/16 15:18 36.4 67 19 124/69 99 Room Air 11/23/16 08:10 Room Air 11/23/16 07:34 36.5 72 16 153/71 100 Room Air 11/22/16 23:20 36.4 68 16 127/66 99 Room Air 11/22/16 20:16 68 110/61 11/22/16 19:45 Room Air 11/22/16 16:00 36.5 66 17 130/66 100 Room Air Nasal Cannula Laboratory Results Last 24 Hours Test 11/23/16 06:54 Sodium Level 157 mmol/L Potassium Level 4.4 mmol/L Chloride Level 126 mmol/L Carbon Dioxide Level 23 mmol/L Anion Gap 8.0 mmol/L Blood Urea Nitrogen 47 mg/dl Creatinine 1.20 mg/dl Est Creatinine Clear Calc Drug Dose 35.7 ml/min Estimated GFR () 64.9 Estimated GFR (Non- 56.0 BUN/Creatinine Ratio 39.1 Random Glucose 83 mg/dl Calcium Level 8.6 mg/dl Assessment and Plan PA Physician Supervision Note: I interviewed and examined the patient. Discussed with Shonda WESTFALL and agree with findings and plan as documented in the note. Any exceptions or clarifications are listed here: None PT with significant baseline parkinsons, now locked in, per Ms Conner care discussion with family, complete treatment of infection and move to snf for hospice care vitals are stable treating possible aspiration pneumonia, uti poa, with unasyn, consider transition to augmentin and move to snf for comfort measures, expect 11/24 Documented By: Demian Loyd Discharge planning: assisted facility (with hospice)
[2016-11-23 23:39] VITALS: BP 111/51; PULSE 78; TEMP 36.7; O2SAT 94
[2016-11-23 23:53] VITALS: BP 115/66; PULSE 65; TEMP 36.3; O2SAT 100
[2016-11-24] MEDS: DEXTROSE 5% 1000ML 1,000 ML IV SCH ×2 (03:06→15:58)
[2016-11-24] MEDS: AMPICILLIN/SULBACTAM SOD INJ 3,000 MG in SODIUM CHLORIDE 0.9% 100ML 100 ML IV SCH ×2 (04:06→16:27)
[2016-11-24 08:03] VITALS: BP 88/60; PULSE 73; TEMP 36.6; O2SAT 99
[2016-11-24 08:10] VITALS: BP 122/70
[2016-11-24 08:30] VITALS: O2SAT 99
[2016-11-24] MEDS: MEGESTROL ACETATE 400 MG/10 ML UDP PO SCH (09:00)
[2016-11-24] MEDS: FINASTERIDE 5 MG TAB PO SCH (09:00)
[2016-11-24] MEDS: ENTACAPONE 200 MG TAB PO SCH ×4 (09:00→20:38)
[2016-11-24] MEDS: CARBIDOPA/LEVODOPA 25/100MG TAB PO SCH ×4 (09:00→20:38)
[2016-11-24] MEDS: CHOLECALCIFEROL 1000 INTER.UNIT TAB PO SCH (09:00)
[2016-11-24] MEDS: DONEPEZIL HCL 10 MG TAB PO SCH (09:00)
[2016-11-24] MEDS: LIDODERM (LIDOCAINE) PATCH 5% TD SCH (09:11)
--- NOTE | 2016-11-24 11:36 | Hospitalist Progress Note ---
Hospitalist Progress Note Date of Service Nov 24, 2016. (Shonda Dean PA-C) Subjective Pt evaluation today including: conversation w/ patient, physical exam, chart review, review of inpatient medication list Patient is able to tell me that he does not have pain. Otherwise, history unobtainable. Additional Comments: Unable to perform secondary to mental state (Shonda Dean PA-C) Objective Vital Signs Date Time Temp Pulse Resp B/P Pulse Ox O2 Delivery O2 Flow Rate FiO2 11/24/16 08:30 99 Room Air 11/24/16 08:10 122/70 11/24/16 08:03 36.6 73 16 88/60 99 Room Air 11/24/16 07:35 Room Air 11/24/16 00:30 Room Air 11/23/16 23:53 36.3 65 16 115/66 100 Room Air 11/23/16 15:40 Room Air 11/23/16 15:18 36.4 67 19 124/69 99 Room Air (Shonda Dean PA-C) Physical Exam General Appearance: + mild distress ENT: + pertinent finding (oral mucosa remains dry) Respiratory/Chest: lungs clear Cardiovascular: regular rate, rhythm Abdomen: non tender, + pertinent finding (bowel sounds present, but hypoactive. emaciated) Extremities: + pertinent finding (muscle wasting noted. Contracture noted in all extremities) Neurologic/Psychiatric: alert (eyes are open this morning. Able to shake his head no when asked if he has pain. Otherwise, does not follow commands.) Skin: warm/dry (Shonda Dean PA-C) Assessment and Plan 81 y/o M w/Hx advanced Parkinson's disease, protein calorie malnutrition. Pt's was recently admitted to the hospital and then a rehab facility following orthopedic surgery. He was exhibiting progressive weakness and lethargy at home and then placed at [facility] for the past 2 weeks by his daughters for the purpose of receiving PT. In fact the pt's condition worsened while in the [facility]dc. He began refusing any PO intake and then refused all medications over the past few days including his Parkinson's meds. He became catatonic and was sent to the ER for evaluation. Initial labs reveal ARF which is likely due to dehydration. Metabolic encephalopathy likely multifactoral-dehydration, acute renal failure, Hypernatremia and UTI-growing Proteus -Continue Unasyn day 6/ -Pt can finish Unasyn here tomorrow-->will not need any further ABX upon d/c Dysphagia-aspirating all consistencies -Pt may have pleasure feeds per family/pt wishes -He does not like thickened liquids Parkinson's - unresponsive and rigid upon admission - possibly a result of abrupt medication withdrawal. Somewhat improved -Continue Sinemet as tolerated ARF secondary to dehydration-creatinine improved during hospital course. -We'll continue IV fluids while patient is in house-->expect quick deterioration when IVF are d/c'ed Hypernatremia secondary to dehydration-sodium worsened despite D5W -continue IVF while in-house. Severe Protein calorie Malnutrition -pt previously had a PEG and has stated that he does not want any form of assisted feeding. DVT prophylaxis -Teds, SCDs CODE STATUS -LEVEL V DO NO RESUSCITATE DISPO -Finish antibiotic course per patient's family's wishes -Ready for discharge. Awaiting placement -DC to [facility] tomorrow (Shonda Dean, PA-C) PA Physician Supervision Note: I interviewed and examined the patient. Discussed with Shonda Dean PAC and agree with findings and plan as documented in the note. Any exceptions or clarifications are listed here: None PT with significant baseline parkinsons, per Ms Conner care discussion with family, complete treatment of infection and move to snf for hospice care very little change in day to day management, for possible disposition 11/25 vitals stable Pt is able to turn to voice, wispers nonsensical words, appears comfortable treating possible aspiration pneumonia, uti poa, with unasyn, consider transition to augmentin and move to snf for comfort measures Documented By: Demian Loyd (Demian Loyd M.D.)
[2016-11-24 11:43] VITALS: BP 134/66; PULSE 70; TEMP 36.9; O2SAT 98
[2016-11-24 15:17] VITALS: BP 126/61; PULSE 67; TEMP 36.2; O2SAT 99
[2016-11-24 23:11] VITALS: BP 107/65; PULSE 72; TEMP 36.5; O2SAT 98
[2016-11-25] MEDS: AMPICILLIN/SULBACTAM SOD INJ 3,000 MG in SODIUM CHLORIDE 0.9% 100ML 100 ML IV SCH (04:27)
[2016-11-25] MEDS: DEXTROSE 5% 1000ML 1,000 ML IV SCH (04:36)
[2016-11-25 07:38] VITALS: BP 130/63; PULSE 65; TEMP 37; O2SAT 99
--- NOTE | 2016-11-25 08:26 | Discharge Instructions ---
Discharge Instructions Date of Service Nov 25, 2016. Admission Reason for Admission: Arf, Parkinson Disease Discharge Discharge Diagnosis / Problem: parkisons disease, transition to comfort care Discharge Goals Goal(s): Diagnostic testing, Therapeutic intervention Activity Recommendations Activity Level: Assistance Required . Additional Information Patient informed of condition: Yes Advance Directives: Yes DNR: Yes Level of Care: Skilled Communicable Disease: No Prognosis: Stable Instructions / Follow-Up Instructions / Follow-Up family is interested in transition to comfort care, still interested in offering his parkinsons medications Current Hospital Diet Patient's current hospital diet: Regular Diet Discharge Diet Recommended Diet: Regular Diet Diet Texture: Pureed (blended smooth) Procedures Procedures Performed: CT head Impression: Chronic and postoperative change. No acute intracranial abnormality. Pending Studies Studies pending at discharge: no Medical Emergencies . Who to Call and When: Medical Emergencies: If at any time you feel your situation is an emergency, please call 911 immediately. . Non-Emergent Contact Non-Emergency issues call your: Primary Care Provider . . "Provider Documentation" section prepared by Demian Loyd. Core Measure Problem Core Measures: None
[2016-11-25] MEDS: FINASTERIDE 5 MG TAB PO SCH (09:00)
[2016-11-25] MEDS: MEGESTROL ACETATE 400 MG/10 ML UDP PO SCH (09:00)
[2016-11-25] MEDS: CARBIDOPA/LEVODOPA 25/100MG TAB PO SCH (09:16)
[2016-11-25] MEDS: CHOLECALCIFEROL 1000 INTER.UNIT TAB PO SCH (09:16)
[2016-11-25] MEDS: ENTACAPONE 200 MG TAB PO SCH (09:16)
[2016-11-25] MEDS: DONEPEZIL HCL 10 MG TAB PO SCH (09:17)
[2016-11-25] MEDS: LIDODERM (LIDOCAINE) PATCH 5% TD SCH (09:17)
[2016-11-25 09:58] VITALS: BP 130/63; PULSE 65; TEMP 37; O2SAT 99
[2016-11-25 10:39] VITALS: O2SAT 99
[2016-11-25 11:44] VITALS: BP 112/76; PULSE 65; TEMP 36.9; O2SAT 99
--- NOTE | 2016-11-25 13:31 | Discharge Summary ---
Discharge Summary Date of Service Nov 25, 2016. Discharge Summary Admission Date: Nov 19, 2016 at 02:17 Discharge Date: Nov 25, 2016 Discharge Disposition: senior living facility Principal Diagnosis: prakinsons disease, functional quadrepelegia, Immunizations: Have You Had Influenza Vaccine: Yes Influenza Vaccine Date: May 25, 2013 History of Tetanus Vaccine?: No History of Pneumococcal: Yes Pneumococcal Date: Aug 04, 2009 History of Hepatitis B Vaccine: No Medication Reconciliation New Medications: Amoxicillin/Clavulanate Potas (Augmentin Susp) 200 Mg/5 Ml Susp 5 ML PO 800 PRN for bid for 3 Days, ML Carbidopa/Levodopa (Sinemet 25MG/100MG) Tab 2 TAB PO QID for 30 Days, TAB Lorazepam (Ativan) 4 Mg/Ml Inj 1 MG PO Q3H for Anxiety/Agitation, #30 DOSE Lorazepam (Ativan) 1 Mg Tab 1 MG SL Q3H PRN for a for 15 Days, #120 TAB Oxycodone Hcl (Roxycodone Oral Soln) 5 Mg/5 Ml Yaneth 5 MG PO Q4H for Pain, #30 DOSE Continued Medications: Acetaminophen (Tylenol) 325 Mg Tab 650 MG PO Q6H PRN for Pain or Fever, TAB NEEDED FOR PAIN # 1-5 OR TEMP > 101f. NTE 3GM APAP/24HRS Baclofen (Lioresal) 10 Mg Tab 10 MG PO TID PRN for Pain, TAB Aolvuklsv-Vrwbgvxm-Klqherbhdw (Carbidopa/Levodopa/Entaca) 1 Tab Tab 1 TAB PO QID [id number] Polyethylene Glycol 3350 (Miralax) 1 Pow Pow 17 GM PO DAILY PRN for Constipation, #527 GM Pramipexole Dihydrochloride (Mirapex) 0.25 Mg Tab 0.25 MG PO HS, TAB Terazosin (Hytrin) 5 Mg Cap 5 MG PO HS Discontinued Medications: Cefdinir (Omnicef) 300 Mg Cap 300 MG PO Q12H for 5 Days, #10 CAP BEGIN 11/18/16 X5 DAYS Ceftriaxone Sod (Rocephin) 1 Gm Inj 1 GM IM DAILY for 5 Days, VIAL BEGIN 11/18/16 X 5 DAYS. MIX WITH 2.1ML 1% LIDOCAINE. Cholecalciferol (Vitamin D3) 1,000 Unit Tab 2000 TAB PO DAILY for 90 Days, TAB 3 Refills Cholecalciferol (Vitamin D3) 1,000 Unit Tab 1000 UNITS PO DAILY, TAB Donepezil Hydrochloride (Aricept) 10 Mg Tab 10 MG PO DAILY Finasteride (Proscar) 5 Mg Tab 5 MG PO DAILY Gabapentin (Neurontin) 100 Mg Cap 100 MG PO BID, CAP Lidocaine (Lidoderm Patch 5%) 1 Ea Tdsy 1 APPLN TD DAILY APPLY TO LEFT LATERAL THIGH DAILY IN AM. REMOVE AT HS. Lorazepam (Ativan) 0.5 Mg Tab 0.25 MG PO TID PRN for Anxiety, TAB Megestrol Acetate (Megace Oral) 40 Mg/Ml Greer 400 MG PO DAILY Tramadol (Ultram) 50 Mg Tab 50 MG PO Q8H, TAB Discharge Exam unable to have full ROS due to parkinsons and dementia Review of Systems: Constitutional: No chills, No fever Physical Exam: General Appearance: WD/WN, + severe distress Neck: supple, no JVD Respiratory/Chest: chest non-tender, + decreased breath sounds, + accessory muscle use, + rhonchi Cardiovascular: regular rate, rhythm, + systolic murmur Abdomen / GI: normal bowel sounds, soft Neurologic/Psychiatric: + depressed affect, + disoriented Hospital Course PT with significant baseline parkinsons, functional quadrepelegia, complete treatment of infection and move to snf for hospice care very little change in day to day management, vitals stable treating possible aspiration pneumonia, uti poa, transition to augmentin and move to snf for comfort measures Documented By: Demian Loyd Total Time Spent: Greater than 30 minutes This includes examination of the patient, discharge planning, medication reconciliation, and communication with other providers. Discharge Instructions Please refer to the electronic Patient Visit Report (Discharge Instructions) for additional information.
== END 2016-11-25 12:00 | disposition hospice, inpatient (51) | DRG 177 ==
LOC: ENRESERVTM → ENRESERVDT → EDBD 21:58 → C.EDB 21:59 → C.MSN 11-19 02:17
PROVIDERS: ADMIT Internal Medicine; ATTEND Hospitalist
DX: J69.0 Pneumonitis due to inhalation of food and vomit (principal); G93.41 Metabolic encephalopathy; E43 Unspecified severe protein-calorie malnutrition; R53.2 Functional quadriplegia; E87.0 Hyperosmolality and hypernatremia; N39.0 Urinary tract infection, site not specified; N17.9 Acute kidney failure, unspecified; G20 Parkinson's disease; E86.0 Dehydration; B96.4 Proteus (mirabilis) (morganii) as the cause of diseases classified elsewhere; R13.10 Dysphagia, unspecified; R26.9 Unspecified abnormalities of gait and mobility; Z66 Do not resuscitate; Z51.5 Encounter for palliative care; Z79.899 Other long term (current) drug therapy; Z79.891 Long term (current) use of opiate analgesic